=== PATIENT | female | born 1940 | race Caucasian/White ===

== ENCOUNTER 2018-10-05 15:57 | Inpatient (IN) | payer MEDICARE ==
[~2018-10-05] VITALS: Ht 160 cm; Wt 62.3 kg
--- NOTE | ~2018-10-05 | MORECARE ---
CASE MANAGEMENT DISCHARGE SUMMARY PATIENT: MERYL SPARKS UNIT: [id number] ADM DATE: 10/05/18 AGE: 78 : 38 SEX: F ROOM/BED: D.1811 AUTHOR: MEHREEN SINGH PHYSICIAN: REFERRING PHYSICIAN: KARINA JUÁREZ MD DATE OF SERVICE: 10/18/18 Discharge Plan Patient Name: MERYL SPARKS Facility: [facility]:[place] : 1940 Planned Disposition: Home with Hospice Anticipated Discharge Date: 10/19/18 Discharge Date: Expected LOS: 14 Initial Reviewer: [email or web address] Initial Review Date: 10/05/2018 Generated: 10/18/18 5:36 pm Comments DCP- Discharge Planning Updated by [email or web address]: Pascual Maxwell on 10/18/18 3:[address] Patient Name: MERYL SPARKS Encounter No: [id number] : 1940 Primary Insurance: MEDICARE A & B Anticipated DC Date: 10-19-2018 Planned Disposition: Home with Hospice External Planned Provider: [facility] DCP follow-up note: CM RECEIVED HOSPICE ORDER, MET WITH PT AND FAMILY IN ROOM. PT DID NOT AROUSE DURING CONSULT. PT'S DAUGHTER, AILYN DE LA O, REPORTS THEY HAVE DISCUSSED HOSPICE WITH PT, ALL ARE IN AGREEMENT WITH HOSPICE LONG PT WILL HAVE PAIN CONTROL. THEY WANT TO TAKE PT TO HER HOME FOR HOSPICE AT PT'S REQUEST. DAUGHTER REPORTS UNDERSTANDING OF HOSPICE CARE AND UNDERSTANDS THE FAMILY WILL NEED TO PROVIDE 24 HOUR CARE FOR PT AT HOME. HOSPICE PROVIDERS AND LOCATIONS DISCUSSED. DAUGHTER REQUESTED [facility] THEY USED [facility] FOR ANOTHER FAMILY MEMBER IN THE PAST AND RECEIVED VERY GOOD CARE. CM PROVIDED AND DISCUSSED IMPORTANT MESSAGE FROM MEDICARE. CM CALLED [facility], , SPOKE TO ANDI AND PROVIDED REFERRAL INFORMATION. ANDI WILL HAVE HOSPICE NURSE TO EVALUATE PT TONIGHT AND SPEAK TO PT'S DAUGHTER; [place] [facility] WILL COORDINATE DELIVERY OF MEDICAL EQUIPMENT AND REFERRAL FOR SERVICES WITH THE [place] [facility]. CM FAXED REFERRAL TO [facility] AT [phone]. CM WAITING HOSPICE EVALUATION AND ARRANGEMENT OF HOME EQUIPMENT TO BE COMPLETED BY [facility] FOR PT TO BE DISCHARGED HOME VIA AMBULANCE. Pascual Maxwell, CASE MANAGEMENT DCP- Discharge Planning Updated by [id number]: Drea Claros on 10/17/18 8:[address] DAY CM MANAGE LEFT NOTE REGARDING LATE PM REQUEST FOR DISCHARGE PLANNING. WEEKEND CM UNABLE TO SEE PATIENT OR FAMILY THURSDAY DUE TO VOLUME OF DISCHARGES FOR SINGLE CM. CM TO UNIT THIS AM AND PATIENT WAS BEING TRANSFERED TO ICU POST RAPID RESPONSE. DISCUSSION IN ICU REGARDING CODE STATUS DUE TO VARYING DEGREES OF STABILITY. DO NOT INTUBATE/ NO COMPRESSIONS/ NO MEDS. PATIENT TRANSFERED BACK TO MED 2 THIS PM. PATIENT WITH 2 ADDITIONAL EPISODES OF INSTABILITY AND DIFFICULTY BREATHING. CM WILL F/U IN THE AM FOR TRANSFERE TO SKILLED FACILITY. [facility] FACILITIES IN [facility]. QUESTION WOULD HOSPICE CONSULT BE APPROPRAITE. DCP- Discharge Planning Updated by [email or web address]: Pascual Maxwell on 10/08/18 3:[address] Patient Name: MERYL SPARKS Admission Status: Urgent Accout number: [id number] Admission Date: 10-05-2018 : 1940 Admission Diagnosis:OTH COMPLICATION OF VASCULAR PROSTH DEV/GARY, INIT Attending: KARINA JUÁREZ Current LOS: 3 Anticipated DC Date: Planned Disposition: Home with Home Health Primary Insurance: MEDICARE A & B PLANNED EXTERNAL PROVIDER: [facility] Discharge Planning Comments: CM RECEIVED MESSAGE THAT PT'S FAMILY WANTED INFORMATION ON LOCAL [employer]. CM MET WITH PT AND SON IN ROOM TO DISCUSS DISCHARGE PLANNING AND NEEDS. MERYL SPARKS provided verbal consent to discuss current and ongoing needs with/in the presence of: SONADELINA. PT REPORTS LIVING AT HOME DEPENDENTLY ON ADULT SON. PT'S DAUGHTER ASSISTS WITH MEDICATION MANAGEMENT AND HOME HEALTH AIDE HAS BEEN ASSISTING WITH BATHING. PT IS IN DEPENDENT OTHERWISE IN THE HOME. PT HAS HOME AND PORTABLE OXYGEN WELL WALKER AND STANDARD WHEELCHAIR FROM [employer]. PT HAS HOME HEALTH WITH [facility] FOR NURSING AND PHYSICAL THERAPY SERVICES. CM DISCUSSED AVAILABILITY OF HOME HEALTH, REHAB SERVICES AND MEDICAL EQUIPMENT. PT DENIES DISCHARGE NEEDS OTHER THAN HER HOME HEALTH, REPORTS PLAN TO RETURN HOME WITH SON, FAMILY WILL PICK PT UP FOR DISCHARGE HOME. IMPORTANT MESSAGE FROM MEDICARE PROVIDED AND EXPLAINED. CM PROVIDED LOCAL HOTEL INFORMATON ALONG WITH DISCOUNT CARD TO [facility]. CM CALLED [facility], , SPOKE TO ADDY WHO VERIFIED PT ACTIVE AND ON HOLD FOR HOME HEALTH NURSING AND PHYSICAL THERAPY. CM FAXED HOSPITAL UPDATE TO [facility] AT [phone]. FOR DISCHARGE HOME WITH HOME HEALTH, NOTIFY [facility] AT [phone], FAX DISCHARGE INFORMATION TO [facility] AT [phone]. Day Care Teacher: Pascual Maxwell DCPIA - Discharge Planning Initial Assessment Updated by [id number]: Pascual Maxwell on 10/08/18 4:35 pm * Is the patient Alert and Oriented? Yes * How many steps to enter\exit or inside your home? RAMP * PCP DR. MAGAÑA, [place] * Pharmacy [facility] IN [place] * Preadmission Environment Home with Family * ADLs Partial Dependent * Partial ADLs (Assistance needed) Bathing Medication Management * Equipment Oxygen Walker Wheelchair * Other Equipment HOME AND PORTABLE OXYGEN [employer] - MEDICAL EQUIPMENT PROVIDER * List name and contact numbers for known caregivers / representatives who currently or will assist patient after discharge: ADELINA TURNER, SON, AILYN DE LA O, DTR, * Verbal permission to speak to the caregivers and representatives has been obtained from the patient. Yes * Community resources currently utilized Home Health Other * Please name any agencies selected above. [facility], MWF, 1115 AM, MEDICAID TRANSPORTATIN * Additional services required to return to the preadmission environment? No * Can the patient safely return to the preadmission environment? Yes * Has this patient been hospitalized within the prior 30 days at any hospital? Yes Coverage Notice Reviewer: [email or web address] Rachel Maxwell Notice Issued Date-Time: 10/08/2018 14:35 Notice Type: IM Discharge Notice Notice Delivered To: Family Member Relationship to Patient: Son Beef Killer Name: ADELINA TURNER Delivery Method: HAND - Hand Delivered Margarita Days: Prior Verbal Notification: Recipient Understood Notice: Yes Recipient Signature: Yes Med Rec Note Co-signed by Attending: Coverage Notice Comment: Reviewer: [email or web address] Maxwell Notice Issued Date-Time: 10/18/2018 15:55 Notice Type: IM Discharge Notice Notice Delivered To: Patient Relationship to Patient: Beef Killer Name: Delivery Method: HAND - Hand Delivered Margarita Days: Prior Verbal Notification: Recipient Understood Notice: Yes Recipient Signature: Yes Med Rec Note Co-signed by Attending: Coverage Notice Comment: Last DP export: 10/18/18 3:19 Patient Name: MERYL SPARKS Page [id number] at 1636 All edits/amendments must be made on the electronic document DICTATION DATE: 10/18/18 163 SKI MAKER: VINCENZO 10/18/18 1636 RPT#: [id number] DC DATE: STATUS: ADM IN [facility] [address] [place] [address] END OF REPORT
--- NOTE | ~2018-10-05 | OP ---
PATIENT NAME: MERYL SPARKS MEDICAL RECORD: [id number] :[birth year] LOCATION:D.M2 D.2113 ADMISSION DATE:10/05/18 SURGEON: MALINDA GORDON MD DATE OF OPERATION: 10/06/2018 SURGEON: Malinda Gordon MD PREOPERATIVE DIAGNOSES: 1. 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 2. End-stage renal disease, on hemodialysis. POSTOPERATIVE DIAGNOSES: 1. 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 2. End-stage renal disease, on hemodialysis. PROCEDURES PERFORMED: 1. Ligation of left upper extremity brachiocephalic fistula. 2. Ultrasound-guided left internal jugular trialysis catheter placement. 3. Right chest tube thoracostomy placement. ANESTHESIA: General. COMPLICATIONS: None. SPECIMENS: None. Case was clean. ESTIMATED BLOOD LOSS: 450 cc. OPERATIVE COURSE: After consent was obtained, the patient was taken to the operating room and placed in the supine position on the operating table. Next, general anesthesia was given via endotracheal intubation after a timeout was performed to confirm correct patient and procedure. The left and right chest and neck were prepped in typical sterile fashion. The left upper extremity was prepped and draped in typical sterile fashion on the arm board. A right internal jugular vein was identified on ultrasound guidance. It was cannulated, a wire would not pass. At this time, a 0.035 Glidewire was attempted to pass without success. Again, attempted cannulation of the left IJ was attempted with a micropuncture needle with ultrasound guidance. Again, blood was aspirated from the IJ. A wire was unable to be passed. At this time, we decided access the right subclavian vein, the guidewire was placed. The dilator and sheath were not able to make the curve at the right subclavian into the superior vena cava. At this time, a right subclavian approach was abandoned. It was noted on fluoroscopy that there was either a large pleural effusion or pneumothorax noted on the right side. The patient had increase in tidal volumes. At this time, a right-sided chest tube was placed and the right chest was prepped and draped. An incision was made just in the anterior axillary line with the #10-blade scalpel. Dissection was continued to the subcutaneous tissue. The chest cavity was entered over the 4th rib with a blunt Pamela. Immediately returned was 1500 cc of serous fluid. A 24-Honduran chest tube was placed into the chest cavity into the apex of the lung, it was secured to the OPERATIVE REPORT [id number] MERYL SPARKS skin at 16 cm, connected to a Pleur-Evac with another additional drainage of 300 cc of serous fluid. It was secured to the skin using 0 silk suture and Adaptic gauze. At this time, the left internal jugular vein was identified with the ultrasound. Under direct ultrasound guidance, the vein was accessed with blood aspirated. The needle and wire were placed under fluoroscopy to the atriocaval junction. A skin incision was made with #11-blade scalpel. The dilators were passed over the wire in a standard Seldinger fashion and under fluoroscopy, a Trialysis catheter was then passed over the wire and advanced to the atriocaval junction. The wire was removed. All 3 ports were aspirated and flushed, secured to the skin using 2-0 nylon suture and sterile dressings. At this time, the local anesthetic was injected in the left antecubital fossa over the fistula. Skin incision made with #10 blade scalpel, dissection continued using sharp scissor dissection as well as electrocautery to isolate the cephalic vein at its anastomosis with the brachial artery. The proximal and distal radial arteries were dissected. Vessel loops were placed as well. An additional vessel loop was placed around the cephalic vein. At this time, the cephalic vein was ligated using 0 Vicryl sutures. With the ultrasound probe, there were triphasic signals in the brachial artery and there were also triphasic signals in the radial artery at the patient's left wrist. At this time, the wound was irrigated. It was closed in 2 layers. The subcutaneous tissue was closed with 3-0 Vicryl. The skin was closed with 4-0 Monocryl, Mastisol, and Steri-Strips. At the end of the case, all needle and instrument counts were correct. No complications occurred. The patient was extubated and transferred to the PACU in stable condition. TRANSINT:[id number] Voice Confirmation ID: [id number] DOCUMENT ID: [id number] MALINDA GORDON MD at 1336 CC: [id number] DICTATION DATE: 10/06/182036 SCRIPT WRITER: 10/06/182300 ADM IN [place] [address] [place] [address]
--- NOTE | ~2018-10-05 | MORECARE ---
CASE MANAGEMENT DISCHARGE SUMMARY PATIENT: MERYL SPARKS UNIT: [id number] ADM DATE: 10/05/18 AGE: 78 : 38 SEX: F ROOM/BED: D.[facility] AUTHOR: MEHREEN SINGH PHYSICIAN: REFERRING PHYSICIAN: KARINA JUÁREZ MD DATE OF SERVICE: 10/08/18 Discharge Plan Patient Name: MERYL SPARKS Facility: [facility]:[place] : 1940 Planned Disposition: Home Anticipated Discharge Date: Discharge Date: Expected LOS: Initial Reviewer: [id number] Initial Review Date: 10/05/2018 Generated: 10/08/18 5:32 pm Coverage Notice Reviewer: [id number] - Pascual Maxwell Notice Issued Date-Time: 10/08/2018 14:35 Notice Type: IM Discharge Notice Notice Delivered To: Family Member Relationship to Patient: Son Die Storage Clerk Name: ADELINA TURNER Delivery Method: HAND - Hand Delivered Margarita Days: Prior Verbal Notification: Recipient Understood Notice: Yes Recipient Signature: Yes Med Rec Note Co-signed by Attending: Coverage Notice Comment: Patient Name: MERYL SPARKS Page 35717 at 1632 All edits/amendments must be made on the electronic document DICTATION DATE: 10/08/18 163 ATMOSPHERIC DRIER TENDER: VINCENZO 10/08/18 1632 RPT#: [id number] DC DATE: STATUS: ADM IN [facility] [address] [place] [address] END OF REPORT
--- NOTE | ~2018-10-05 | OP ---
PATIENT NAME: MERYL SPARKS MEDICAL RECORD: [id number] :36 LOCATION:D.M2 D.2113 ADMISSION DATE:10/05/18 SURGEON: JACINTO GRIDER MD DATE OF OPERATION: 10/13/2018 PREOPERATIVE DIAGNOSIS: End-stage renal disease without chronic access for hemodialysis. POSTOPERATIVE DIAGNOSIS: End-stage renal disease without chronic access for hemodialysis. PROCEDURES: 1. Left IJ 23 cm HemoSplit catheter placement under fluoroscopy. 2. Immediate surgeon interpretation of the fluoroscopic images. SURGEON: Jacinto Grider MD NANOSYSTEMS ENGINEER: None. BLOOD LOSS: Minimal. ANESTHESIA: Straight local. COMPLICATIONS: None. The patient currently has a left-sided Trialysis catheter in place. She has had to have an arteriovenous fistula ligated due to steal syndrome. OPERATIVE COURSE: The patient was conveyed to the operating room electively on 10/13/2018. The left neck and left chest were sterilely prepped and draped. A local anesthetic was used to infiltrate the skin and subcutaneous tissues at the base of left neck as well as in the left anterior infraclavicular chest. Through the existing Trialysis catheter, I advanced a guidewire. No radiologist was present for this procedure. Static fluoroscopic images were obtained and are kept in the PACS system. The surgeon interpretation of radiographic images is dictated within the body of this operative note. Under fluoroscopy, I advanced the guidewire. A counter incision was accomplished in the left infraclavicular anterior chest in the midclavicular line. An incision was accomplished around the Trialysis catheter as well. I then tunneled a 23 cm HemoSplit catheter, which is a dual lumen cuffed hemodialysis catheter from the chest incision to the neck incision. Over the guidewire, I placed a dilator sheath. The dilator and wire were removed. Through the sheath, I advanced the tips of the HemoSplit catheter. I then peeled away the sheath. I then pulled back on the HemoSplit catheter in order to seat the cuff into the subcutaneous tissues. Under fluoroscopy, the longest HemoSplit catheter tip appeared to be at the cavoatrial junction. There was no radiographic evidence of complication. There was no apparent kinking or twisting of the HemoSplit catheter. The neck incision was closed with a single intracuticular 3-0 Vicryl suture. The flange of the HemoSplit catheter was sutured to the underlying skin with 2-0 nylons. Both lumens flushed easily and aspirated dark, nonpulsatile blood. OPERATIVE REPORT [id number] MERYL SPARKS I then topped off both lumens of the HemoSplit catheter with concentrated heparin. Sterile dressings were applied. The patient was then conveyed back to her room. TRANSINT:[id number] Voice Confirmation ID: [id number] DOCUMENT ID: [id number] JACINTO GRIDER MD at 1204 CC: [id number] DICTATION DATE: 10/13/18 2100 INFORMATION SYSTEMS MANAGER: 10/14/18 0334 ADM IN [facility] [address] [place] [address]
--- NOTE | ~2018-10-05 | MORECARE ---
CASE MANAGEMENT DISCHARGE SUMMARY PATIENT: MERYL SPARKS UNIT: [id number] ADM DATE: 10/05/18 AGE: 78 : 38 SEX: F ROOM/BED: D.4163 AUTHOR: FRANCISCO,MEHREEN PHYSICIAN: REFERRING PHYSICIAN: KARINA JUÁREZ MD DATE OF SERVICE: 10/08/18 Discharge Plan Patient Name: MERYL SPARKS Facility: [facility]:[place] : 1940 Planned Disposition: Home with Home Health Anticipated Discharge Date: Discharge Date: Expected LOS: Initial Reviewer: [email or web address] Initial Review Date: 10/05/2018 Generated: 10/08/18 5:56 pm Comments DCP- Discharge Planning Updated by [id number]: Pascual Maxwell on 10/08/18 3:[address] Patient Name: MERYL SPARKS Admission Status: Urgent Accout number: [id number] Admission Date: 10-05-2018 : 1940 Admission Diagnosis:OTH COMPLICATION OF VASCULAR PROSTH DEV/GRFT, INIT Attending: KARINA JUÁREZ Current LOS: 3 Anticipated DC Date: Planned Disposition: Home with Home Health Primary Insurance: MEDICARE A & B PLANNED EXTERNAL PROVIDER: [facility] Discharge Planning Comments: CM RECEIVED MESSAGE THAT PT'S FAMILY WANTED INFORMATION ON LOCAL HOTELS. CM MET WITH PT AND SON IN ROOM TO DISCUSS DISCHARGE PLANNING AND NEEDS. MERYL SPARKS provided verbal consent to discuss current and ongoing needs with/in the presence of: SON, ADELINA TURNER. PT REPORTS LIVING AT HOME DEPENDENTLY ON ADULT SON. PT'S DAUGHTER ASSISTS WITH MEDICATION MANAGEMENT AND HOME HEALTH AIDE HAS BEEN ASSISTING WITH BATHING. PT IS IN DEPENDENT OTHERWISE IN THE HOME. PT HAS HOME AND PORTABLE OXYGEN WELL WALKER AND STANDARD WHEELCHAIR FROM [facility]. PT HAS HOME HEALTH WITH [facility] FOR NURSING AND PHYSICAL THERAPY SERVICES. CM DISCUSSED AVAILABILITY OF HOME HEALTH, REHAB SERVICES AND MEDICAL EQUIPMENT. PT DENIES DISCHARGE NEEDS OTHER THAN HER HOME HEALTH, REPORTS PLAN TO RETURN HOME WITH SON, FAMILY WILL PICK PT UP FOR DISCHARGE HOME. IMPORTANT MESSAGE FROM MEDICARE PROVIDED AND EXPLAINED. CM PROVIDED LOCAL HOTEL [employer] ALONG WITH DISCOUNT CARD TO [facility]. CM CALLED [facility], , SPOKE TO ADDY WHO VERIFIED PT ACTIVE AND ON HOLD FOR HOME HEALTH NURSING AND PHYSICAL THERAPY. CM FAXED HOSPITAL UPDATE TO [facility] AT [phone]. FOR DISCHARGE HOME WITH HOME HEALTH, NOTIFY [facility] AT [phone], FAX DISCHARGE INFORMATION TO [facility] AT [phone]. Cold Type Artist: Pascual Maxwell DCPIA - Discharge Planning Initial Assessment Updated by [id number]: Pascual Maxwell on 10/08/18 4:35 pm * Is the patient Alert and Oriented? Yes * How many steps to enter\exit or inside your home? RAMP * PCP DR. MAGAÑA, [place] * Pharmacy [facility] IN [place] * Preadmission Environment Home with Family * ADLs Partial Dependent * Partial ADLs (Assistance needed) Bathing Medication Management * Equipment Oxygen Walker Wheelchair * Other Equipment HOME AND PORTABLE OXYGEN [employer] - MEDICAL EQUIPMENT PROVIDER * List name and contact numbers for known caregivers / representatives who currently or will assist patient after discharge: ADELINA TURNER, SON, AILYN DE LA O DTR, * Verbal permission to speak to the caregivers and representatives has been obtained from the patient. Yes * Community resources currently utilized [facility] Other * Please name any agencies selected above. [facility], MWF, 1115 AM, MEDICAID TRANSPORTATIN * Additional services required to return to the preadmission environment? No * Can the patient safely return to the preadmission environment? Yes * Has this patient been hospitalized within the prior 30 days at any hospital? Yes External Providers External Provider: [facility] Next Contact Date: 10/09/2018 Service Request Date: Service Type: Resolution: Reviewer: Comments: Coverage Notice Reviewer: [id number] - Pascual Maxwell Notice Issued Date-Time: 10/08/2018 14:35 Notice Type: IM Discharge Notice Notice Delivered To: Family Member Relationship to Patient: Son Laboratory Administrative Director Name: ADELINA TURNER Delivery Method: HAND - Hand Delivered Margarita Days: Prior Verbal Notification: Recipient Understood Notice: Yes Recipient Signature: Yes Med Rec Note Co-signed by Attending: Coverage Notice Comment: Last DP export: 10/08/18 3:42 p Patient Name: MERYL SPARKS Page 59967 at 1657 All edits/amendments must be made on the electronic document DICTATION DATE: 10/08/181655 HEAD PORTER BAGGAGE: [place]INCENZO 10/08/181655 RPT#: [id number] DC DATE: STATUS: ADM IN [facility] [address] [place] [address] END OF REPORT
--- NOTE | ~2018-10-05 | MORECARE ---
CASE MANAGEMENT DISCHARGE SUMMARY PATIENT: MERYL SPARKS UNIT: [id number] ADM DATE: 10/05/18 AGE: 78 : 38 SEX: F ROOM/BED: D.2113 AUTHOR: MEHREEN SINGH PHYSICIAN: REFERRING PHYSICIAN: KARINA JUÁREZ MD DATE OF SERVICE: 10/19/18 Discharge Plan Patient Name: MERYL SPARKS Facility: [facility]:[place] : 1940 Planned Disposition: Home with Hospice Anticipated Discharge Date: 10/19/18 Discharge Date: Expected LOS: 14 Initial Reviewer: [id number] Initial Review Date: 10/05/2018 Generated: 10/19/18 12:52 pm Comments DCP- Discharge Planning Updated by [id number]: Pascual Maxwell on 10/19/18 10:[address] Patient Name: MERYL SPARKS Encounter No: [id number] : 1940 Primary Insurance: MEDICARE A & B Anticipated DC Date: 10-19-2018 Planned Disposition: Home with Hospice External Planned Provider: [facility] DCP follow-up note: CM RECEIVED NOTE FROM NATANAEL JUÁREZ, NURSE FOR [facility] INDCIATING PT HAS BEEN APPROVED FOR HOME HOSPICE AND THEY WILL ADMIT TO HOSPICE UPON PT'S ARRIVAL AT HOME. CM SPOKE TO PT'S DAUGHTER, AILYN DE LA O, WHO REPORTS ALL ARRANGEMENTS ARE COMPLETED, ALL EQUIPMENT AT HOME, THEY ARE IN AGREEMENT WITH DISCHARGE HOME TODAY WITH [facility]. CM NOTIFIED DR. BOND. CM RECEIVED DISCHARGE ORDERS, CM FAXED DISCHARGE INFORMATION TO [facility] AT [phone]. NOTIFY [facility] WHEN PT LEAVES BY AMBULANCE AT [phone]. PT TO BE DISCHARGED HOME VIA AMBULANCE. EVA Barnett DCP- Discharge Planning Updated by [id number]: Pascual Maxwell on 10/18/18 3:[address] Patient Name: MERYL SPARKS Encounter No: [id number] : 1940 Primary Insurance: MEDICARE A & B Anticipated DC Date: 10-19-2018 Planned Disposition: Home with Hospice External Planned Provider: [facility] DCP follow-up note: CM RECEIVED HOSPICE ORDER, MET WITH PT AND FAMILY IN ROOM. PT DID NOT AROUSE DURING CONSULT. PT'S DAUGHTER, AILYN DE LA O, REPORTS THEY HAVE DISCUSSED HOSPICE WITH PT, ALL ARE IN AGREEMENT WITH HOSPICE LONG PT WILL HAVE PAIN CONTROL. THEY WANT TO TAKE PT TO HER HOME FOR HOSPICE AT PT'S REQUEST. DAUGHTER REPORTS UNDERSTANDING OF HOSPICE CARE AND UNDERSTANDS THE FAMILY WILL NEED TO PROVIDE 24 HOUR CARE FOR PT AT HOME. HOSPICE PROVIDERS AND LOCATIONS DISCUSSED. DAUGHTER REQUESTED [facility] THEY USED [facility] FOR ANOTHER FAMILY MEMBER IN THE PAST AND RECEIVED VERY GOOD CARE. CM PROVIDED AND DISCUSSED IMPORTANT MESSAGE FROM MEDICARE. CM CALLED [facility], , SPOKE TO ANDI AND PROVIDED REFERRAL INFORMATION. ANDI WILL HAVE HOSPICE NURSE TO EVALUATE PT TONIGHT AND SPEAK TO PT'S DAUGHTER; [place] OFFICE OF [facility] WILL COORDINATE DELIVERY OF MEDICAL EQUIPMENT AND REFERRAL FOR SERVICES WITH THE [place] OFFICE OF [facility]. CM FAXED REFERRAL TO [facility] AT [phone]. CM WAITING HOSPICE EVALUATION AND ARRANGEMENT OF HOME EQUIPMENT TO BE COMPLETED BY [facility] FOR PT TO BE DISCHARGED HOME VIA AMBULANCE. Pascual Maxwell, CASE MANAGEMENT DCP- Discharge Planning Updated by [id number]: Drea Claros on 10/17/18 8:[address] WEEKDAY CM MANAGE LEFT NOTE REGARDING LATE PM REQUEST FOR DISCHARGE PLANNING. WEEKEND CM UNABLE TO SEE PATIENT OR FAMILY THURSDAY DUE TO VOLUME OF DISCHARGES FOR SINGLE CM. CM TO UNIT THIS AM AND PATIENT WAS BEING TRANSFERED TO ICU POST RAPID RESPONSE. DISCUSSION IN ICU REGARDING CODE STATUS DUE TO VARYING DEGREES OF STABILITY. DO NOT INTUBATE/ NO COMPRESSIONS/ NO MEDS. PATIENT TRANSFERED BACK TO MED 2 THIS PM. PATIENT WITH 2 ADDITIONAL EPISODES OF INSTABILITY AND DIFFICULTY BREATHING. CM WILL F/U IN THE AM FOR TRANSFERE TO SKILLED FACILITY. [facility] FACILITIES IN [facility]. QUESTION WOULD HOSPICE CONSULT BE APPROPRAITE. 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 CM MET WITH PT AND SON IN ROOM TO DISCUSS DISCHARGE PLANNING AND NEEDS. MERYL SPARKS provided verbal consent to discuss current and ongoing needs with/in the presence of: SON, ADELINA TURNRE. PT REPORTS LIVING AT HOME DEPENDENTLY ON ADULT SON. PT'S DAUGHTER ASSISTS WITH MEDICATION MANAGEMENT AND HOME HEALTH AIDE HAS BEEN ASSISTING WITH BATHING. PT IS IN DEPENDENT OTHERWISE IN THE HOME. PT HAS HOME AND PORTABLE OXYGEN WELL WALKER AND STANDARD WHEELCHAIR FROM [facility]. PT HAS HOME HEALTH WITH [facility] FOR NURSING AND PHYSICAL THERAPY SERVICES. CM DISCUSSED AVAILABILITY OF HOME HEALTH, REHAB SERVICES AND MEDICAL EQUIPMENT. PT DENIES DISCHARGE NEEDS OTHER THAN HER HOME HEALTH, REPORTS PLAN TO RETURN HOME WITH SON, FAMILY WILL PICK PT UP FOR DISCHARGE HOME. IMPORTANT MESSAGE FROM MEDICARE PROVIDED AND EXPLAINED. CM PROVIDED LOCAL HOTEL INFORMATON ALONG WITH DISCOUNT CARD TO [facility] SUITES ON [facility]. CM CALLED [facility], , SPOKE TO ADDY WHO VERIFIED PT ACTIVE AND ON HOLD FOR HOME HEALTH NURSING AND PHYSICAL THERAPY. CM FAXED HOSPITAL UPDATE TO [facility] AT [phone]. FOR DISCHARGE HOME WITH [facility], NOTIFY [facility] AT [phone], FAX DISCHARGE INFORMATION TO [facility] AT [phone]. Maintenance Engineer: Pascual Maxwell DCPIA - Discharge Planning Initial Assessment Updated by [id number]: Pascual Maxwell on 10/08/18 4:35 pm * Is the patient Alert and Oriented? Yes * How many steps to enter\exit or inside your home? RAMP * PCP DR. MAGAÑA [place] * Pharmacy [facility] [place] * Preadmission Environment Home with Family * ADLs Partial Dependent * Partial ADLs (Assistance needed) Bathing Medication Management * Equipment Oxygen Walker Wheelchair * Other Equipment HOME AND PORTABLE OXYGEN [employer] - MEDICAL EQUIPMENT PROVIDER * List name and contact numbers for known caregivers / representatives who currently or will assist patient after discharge: ADELINA TURNER, SON, AILYN DE LA O DTR, * Verbal permission to speak to the caregivers and representatives has been obtained from the patient. Yes * Community resources currently utilized Home Health Other * Please name any agencies selected above. [facility], MWF, 1115 AM, MEDICAID TRANSPORTATIN * Additional services required to return to the preadmission environment? No * Can the patient safely return to the preadmission environment? Yes * Has this patient been hospitalized within the prior 30 days at any hospital? Yes Coverage Notice Reviewer: JETT Maxwell Notice Issued Date-Time: 10/08/2018 14:35 Notice Type: IM Discharge Notice Notice Delivered To: Family Member Relationship to Patient: Son Tube Sorter Name: ADELINA TURNER Delivery Method: HAND - Hand Delivered Margarita Days: Prior Verbal Notification: Recipient Understood Notice: Yes Recipient Signature: Yes Med Rec Note Co-signed by Attending: Coverage Notice Comment: Reviewer: JETT Maxwell Notice Issued Date-Time: 10/18/2018 15:55 Notice Type: IM Discharge Notice Notice Delivered To: Patient Relationship to Patient: Tube Sorter Name: Delivery Method: HAND - Hand Delivered Margarita Days: Prior Verbal Notification: Recipient Understood Notice: Yes Recipient Signature: Yes Med Rec Note Co-signed by Attending: Coverage Notice Comment: Last DP export: 10/18/18 4:24 Patient Name: MERYL SPARKS Page 54301 at 1152 All edits/amendments must be made on the electronic document DICTATION DATE: 10/19/18 1151 MERCHANDISER SEASONAL: VINCENZO 10/19/18 1151 RPT#: [id number] [place] DATE: STATUS: ADM IN [facility] [address] [place] [address] END OF REPORT
--- NOTE | ~2018-10-05 | MORECARE ---
CASE MANAGEMENT DISCHARGE SUMMARY PATIENT: MERYL SPARKS UNIT: [id number] ADM DATE: 10/05/18 AGE: 78 : 38 SEX: F ROOM/BED: D.0064 AUTHOR: MEHREEN SINGH PHYSICIAN: REFERRING PHYSICIAN: KARINA JUÁREZ MD DATE OF SERVICE: 10/18/18 Discharge Plan Patient Name: MERYL SPARKS Facility: [facility]:[place] : 1940 Planned Disposition: Home with Hospice Anticipated Discharge Date: 10/19/18 Discharge Date: Expected LOS: 14 Initial Reviewer: [id number] Initial Review Date: 10/05/2018 Generated: 10/18/18 6:24 pm Comments DCP- Discharge Planning Updated by [id number]: Pascual Maxwell on 10/18/18 3:[address] Patient Name: MERYL SPARKS Encounter No: [id number] : 1940 Primary Insurance: MEDICARE A & B Anticipated DC Date: 10-19-2018 Planned Disposition: Home with Hospice External Planned Provider: [facility] DCP follow-up note: CM RECEIVED HOSPICE ORDER, MET WITH PT AND FAMILY IN ROOM. PT DID NOT AROUSE DURING CONSULT. PT'S DAUGHTER, AILYN DE LA O, REPORTS THEY HAVE DISCUSSED HOSPICE WITH PT, ALL ARE IN AGREEMENT WITH HOSPICE LONG PT WILL HAVE PAIN CONTROL. THEY WANT TO TAKE PT TO HER HOME FOR HOSPICE AT PT'S REQUEST. DAUGHTER REPORTS UNDERSTANDING OF HOSPICE CARE AND UNDERSTANDS THE FAMILY WILL NEED TO PROVIDE 24 HOUR CARE FOR PT AT HOME. HOSPICE PROVIDERS AND LOCATIONS DISCUSSED. DAUGHTER REQUESTED [facility] THEY USED [place] FOR ANOTHER FAMILY MEMBER IN THE PAST AND RECEIVED VERY GOOD CARE. CM PROVIDED AND DISCUSSED IMPORTANT MESSAGE FROM MEDICARE. CM CALLED [facility], , SPOKE TO ANDI AND PROVIDED REFERRAL INFORMATION. ANDI WILL HAVE HOSPICE NURSE TO EVALUATE PT TONIGHT AND SPEAK TO PT'S DAUGHTER; [place] OFFICE OF [facility] WILL COORDINATE DELIVERY OF MEDICAL EQUIPMENT AND REFERRAL FOR SERVICES WITH THE [place] OFFICE OF [facility]. CM FAXED REFERRAL TO [facility] AT [phone]. CM WAITING HOSPICE EVALUATION AND ARRANGEMENT OF HOME EQUIPMENT TO BE COMPLETED BY [facility] FOR PT TO BE DISCHARGED HOME VIA AMBULANCE. Pascual Maxwell, CASE MANAGEMENT DCP- Discharge Planning Updated by [id number]: Drea Claros on 10/17/18 8:[address] DAY CM MANAGE LEFT NOTE REGARDING LATE PM REQUEST FOR DISCHARGE PLANNING. WEEKEND CM UNABLE TO SEE PATIENT OR FAMILY THURSDAY DUE TO VOLUME OF DISCHARGES FOR SINGLE CM. CM TO UNIT THIS AM AND PATIENT WAS BEING TRANSFERED TO ICU POST RAPID RESPONSE. DISCUSSION IN ICU REGARDING CODE STATUS DUE TO VARYING DEGREES OF STABILITY. DO NOT INTUBATE/ NO COMPRESSIONS/ NO MEDS. PATIENT TRANSFERED BACK TO MED 2 THIS PM. PATIENT WITH 2 ADDITIONAL EPISODES OF INSTABILITY AND DIFFICULTY BREATHING. CM WILL F/U IN THE AM FOR TRANSFERE TO SKILLED FACILITY. THREE FACILITIES IN [facility]. QUESTION WOULD HOSPICE CONSULT BE APPROPRAITE. DCP- Discharge Planning Updated by [id number]: Pascual Maxwell on 10/08/18 3:[address] Patient Name: MERYL SPARKS Admission Status: Urgent Accout number: [id number] Admission Date: 10-05-2018 : 1940 Admission Diagnosis:OTH COMPLICATION OF VASCULAR PROSTH DEV/GARY, INIT Attending: KARINA JUÁREZ Current LOS: 3 Anticipated DC Date: Planned Disposition: Home with Home Health Primary Insurance: MEDICARE A & B PLANNED EXTERNAL PROVIDER: [facility] Discharge Planning Comments: CM RECEIVED MESSAGE THAT PT'S FAMILY WANTED INFORMATION ON LOCAL H[employer]. CM MET WITH PT AND SON IN ROOM TO DISCUSS DISCHARGE PLANNING AND NEEDS. MERYL SPARKS provided verbal consent to discuss current and ongoing needs with/in the presence of: SONADELINA. PT REPORTS LIVING AT HOME DEPENDENTLY ON ADULT SON. PT'S DAUGHTER ASSISTS WITH MEDICATION MANAGEMENT AND HOME HEALTH AIDE HAS BEEN ASSISTING WITH BATHING. PT IS IN DEPENDENT OTHERWISE IN THE HOME. PT HAS HOME AND PORTABLE OXYGEN WELL WALKER AND STANDARD WHEELCHAIR FROM [employer]. PT HAS HOME HEALTH WITH [facility] FOR [facility] AND PHYSICAL THERAPY SERVICES. CM DISCUSSED AVAILABILITY OF HOME HEALTH, REHAB SERVICES AND MEDICAL EQUIPMENT. PT DENIES DISCHARGE NEEDS OTHER THAN HER HOME HEALTH, REPORTS PLAN TO RETURN HOME WITH SON, FAMILY WILL PICK PT UP FOR DISCHARGE HOME. IMPORTANT MESSAGE FROM MEDICARE PROVIDED AND EXPLAINED. CM PROVIDED LOCAL HOTEL INFORMATON ALONG WITH DISCOUNT CARD TO [facility] ON [facility]. CM CALLED [facility], , SPOKE TO ADDY WHO VERIFIED PT ACTIVE AND ON HOLD FOR HOME HEALTH NURSING AND PHYSICAL THERAPY. CM FAXED HOSPITAL UPDATE TO [facility] AT [phone]. FOR DISCHARGE HOME WITH HOME HEALTH, NOTIFY [facility] AT [phone], FAX DISCHARGE INFORMATION TO [facility] AT [phone]. Assistant Operator: Pascual Maxwell DCPIA - Discharge Planning Initial Assessment Updated by [id number]: Pascual Maxwell on 10/08/18 4:35 pm * Is the patient Alert and Oriented? Yes * How many steps to enter\exit or inside your home? RAMP * PCP DR. MAGAÑA, [place] * Pharmacy [facility] [place] * Preadmission Environment Home with Family * ADLs Partial Dependent * Partial ADLs (Assistance needed) Bathing Medication Management * Equipment Oxygen Walker Wheelchair * Other Equipment HOME AND PORTABLE OXYGEN [employer] - MEDICAL EQUIPMENT PROVIDER * List name and contact numbers for known caregivers / representatives who currently or will assist patient after discharge: ADELINA TURNER, SON, AILYN DE LA O, DTR, * Verbal permission to speak to the caregivers and representatives has been obtained from the patient. Yes * Community resources currently utilized Home Health Other * Please name any agencies selected above. [facility], MWF, 1115 AM, MEDICAID TRANSPORTATIN * Additional services required to return to the preadmission environment? No * Can the patient safely return to the preadmission environment? Yes * Has this patient been hospitalized within the prior 30 days at any hospital? Yes Coverage Notice Reviewer: [id number] Rachel Maxwell Notice Issued Date-Time: 10/08/2018 14:35 Notice Type: IM Discharge Notice Notice Delivered To: Family Member Relationship to Patient: Son Laborer Plumbing Name: ADELINA TURNER Delivery Method: HAND - Hand Delivered Margarita Days: Prior Verbal Notification: Recipient Understood Notice: Yes Recipient Signature: Yes Med Rec Note Co-signed by Attending: Coverage Notice Comment: Reviewer: [id number] Maxwell Notice Issued Date-Time: 10/18/2018 15:55 Notice Type: IM Discharge Notice Notice Delivered To: Patient Relationship to Patient: Laborer Plumbing Name: Delivery Method: HAND - Hand Delivered Margarita Days: Prior Verbal Notification: Recipient Understood Notice: Yes Recipient Signature: Yes Med Rec Note Co-signed by Attending: Coverage Notice Comment: Last DP export: 10/18/18 3:36 Patient Name: MERYL SPARKS Page 74506 at 1724 All edits/amendments must be made on the electronic document DICTATION DATE: 10/18/181722 CIGARETTE MAKING EXAMINER: VINCENZO 10/18/181722 RPT#: [id number] DC DATE: STATUS: ADM IN [facility] [address] [place] [address] END OF REPORT
--- NOTE | ~2018-10-05 | MORECARE ---
CASE MANAGEMENT DISCHARGE SUMMARY PATIENT: MERYL SPARKS UNIT: [id number] ADM DATE: 10/05/18 AGE: 78 : 38 SEX: F ROOM/BED: D.[facility]3 AUTHOR: FRANCISCO,DOC PHYSICIAN: REFERRING PHYSICIAN: KARINA JUÁREZ MD DATE OF SERVICE: 10/08/18 Discharge Plan Patient Name: MERYL SPARKS Facility: [facility]:[place] : 1940 Planned Disposition: Home with Home Health Anticipated Discharge Date: Discharge Date: Expected LOS: Initial Reviewer: [email or web address] Initial Review Date: 10/05/2018 Generated: 10/08/18 5:42 pm DCPIA - Discharge Planning Initial Assessment Updated by JETT: Pascual Maxwell on 10/08/18 4:35 pm * Is the patient Alert and Oriented? Yes * How many steps to enter\exit or inside your home? RAMP * PCP DR. MAGAÑA [place] * Pharmacy [facility] IN [place] * Preadmission Environment Home with Family * ADLs Partial Dependent * Partial ADLs (Assistance needed) Bathing Medication Management * Equipment Oxygen Walker Wheelchair * Other Equipment HOME AND PORTABLE OXYGEN [employer] - MEDICAL EQUIPMENT PROVIDER * List name and contact numbers for known caregivers / representatives who currently or will assist patient after discharge: ADELINA TURNER, SON, AILYN DE LA O, DTR, * Verbal permission to speak to the caregivers and representatives has been obtained from the patient. Yes * Community resources currently utilized Home Health Other * Please name any agencies selected above. [facility], MWF, 1115 AM, MEDICAID TRANSPORTATIN * Additional services required to return to the preadmission environment? No * Can the patient safely return to the preadmission environment? Yes * Has this patient been hospitalized within the prior 30 days at any hospital? Yes Coverage Notice Reviewer: [id number] Rachel Maxwell Notice Issued Date-Time: 10/08/2018 14:35 Notice Type: IM Discharge Notice Notice Delivered To: Family Member Relationship to Patient: Son Cake Inspector Name: ADELINA TURNER Delivery Method: HAND - Hand Delivered Margarita Days: Prior Verbal Notification: Recipient Understood Notice: Yes Recipient Signature: Yes Med Rec Note Co-signed by Attending: Coverage Notice Comment: Last DP export: 10/08/18 3:32 p Patient Name: MERYL SPARKS Page [id number] at 1642 All edits/amendments must be made on the electronic document DICTATION DATE: 10/08/181640 WEAPONS AND TACTICS INSTRUCTOR: VINCENZO 10/08/181640 RPT#: [id number] DC DATE: STATUS: ADM IN [facility] [address] [place] [address] END OF REPORT
--- NOTE | ~2018-10-05 | MORECARE ---
CASE MANAGEMENT DISCHARGE SUMMARY PATIENT: MERYL SPARKS UNIT: [id number] ADM DATE: 10/05/18 AGE: 78 : 38 SEX: F ROOM/BED: D.[facility]3 AUTHOR: MEHREEN SINGH PHYSICIAN: REFERRING PHYSICIAN: KARINA JUÁREZ MD DATE OF SERVICE: 10/18/18 Discharge Plan Patient Name: MERYL SPARKS Facility: [facility]:[place] : 1940 Planned Disposition: Nursing Facility GAIL Cert Anticipated Discharge Date: Discharge Date: Expected LOS: Initial Reviewer: [id number] Initial Review Date: 10/05/2018 Generated: 10/18/18 12:18 pm Comments DCP- Discharge Planning Updated by [id number]: Drea Claros on 10/17/18 8:[address] DAY CM MANAGE LEFT NOTE REGARDING LATE PM REQUEST FOR DISCHARGE PLANNING. WEEKEND CM UNABLE TO SEE PATIENT OR FAMILY THURSDAY DUE TO VOLUME OF DISCHARGES FOR SINGLE CM. CM TO UNIT THIS AM AND PATIENT WAS BEING TRANSFERED TO ICU POST RAPID RESPONSE. DISCUSSION IN ICU REGARDING CODE STATUS DUE TO VARYING DEGREES OF STABILITY. DO NOT INTUBATE/ NO COMPRESSIONS/ NO MEDS. PATIENT TRANSFERED BACK TO MED 2 THIS PM. PATIENT WITH 2 ADDITIONAL EPISODES OF INSTABILITY AND DIFFICULTY BREATHING. CM WILL F/U IN THE AM FOR TRANSFERE TO SKILLED FACILITY. [facility] FACILITIES IN [facility]. QUESTION WOULD HOSPICE CONSULT BE APPROPRAITE. DCP- Discharge Planning Updated by [id number]: Pascual Maxwell on 10/08/18 3:[address] Patient Name: MERYL SPARKS Admission Status: Urgent Accout number: [id number] Admission Date: 10-05-2018 : 1940 Admission Diagnosis:OTH COMPLICATION OF VASCULAR PROSTH DEV/GRFT, INIT Attending: KARINA JUÁREZ Current LOS: 3 Anticipated DC Date: Planned Disposition: Home with Home Health Primary Insurance: MEDICARE A & B PLANNED EXTERNAL PROVIDER: [facility] OFF[facility] Discharge Planning Comments: CM RECEIVED MESSAGE THAT PT'S FAMILY WANTED INFORMATION ON LOCAL HOTELS. CM MET WITH PT AND SON IN ROOM TO DISCUSS DISCHARGE PLANNING AND NEEDS. MERYL SPARKS provided verbal consent to discuss current and ongoing needs with/in the presence of: SONADELINA. PT REPORTS LIVING AT HOME DEPENDENTLY ON ADULT SON. PT'S DAUGHTER ASSISTS WITH MEDICATION MANAGEMENT AND HOME HEALTH AIDE HAS BEEN ASSISTING WITH BATHING. PT IS IN DEPENDENT OTHERWISE IN THE HOME. PT HAS HOME AND PORTABLE OXYGEN WELL WALKER AND STANDARD WHEELCHAIR FROM [facility]. PT HAS HOME HEALTH WITH [facility] AND PHYSICAL THERAPY SERVICES. CM DISCUSSED AVAILABILITY OF HOME HEALTH, REHAB SERVICES AND MEDICAL EQUIPMENT. PT DENIES DISCHARGE NEEDS OTHER THAN HER HOME HEALTH, REPORTS PLAN TO RETURN HOME WITH SON, FAMILY WILL PICK PT UP FOR DISCHARGE HOME. IMPORTANT MESSAGE FROM MEDICARE PROVIDED AND EXPLAINED. PROVIDED LOCAL HOTEL INFORMATON ALONG WITH DISCOUNT CARD TO [facility] ON [facility]. CM CALLED [facility], , SPOKE TO ADDY WHO VERIFIED PT ACTIVE AND ON HOLD FOR HOME HEALTH NURSING AND PHYSICAL THERAPY. CM FAXED HOSPITAL UPDATE TO [facility] AT [phone]. FOR DISCHARGE HOME WITH HOME HEALTH, NOTIFY [facility] AT [phone], FAX DISCHARGE INFORMATION TO [facility] AT [phone]. [place] Registered Nurse Rn: Pascual Maxwell DCPIA - Discharge Planning Initial Assessment Updated by [id number]: Pascual Maxwell on 10/08/18 4:35 pm * Is the patient Alert and Oriented? Yes * How many steps to enter\exit or inside your home? RAMP * PCP DR. MAGAÑA, [place] * Pharmacy [facility] [place] * Preadmission Environment Home with Family * ADLs Partial Dependent * Partial ADLs (Assistance needed) Bathing Medication Management * Equipment Oxygen Walker Wheelchair * Other Equipment HOME AND PORTABLE OXYGEN [employer] - MEDICAL EQUIPMENT PROVIDER * List name and contact numbers for known caregivers / representatives who currently or will assist patient after discharge: ADELINA TURNER, SON, AILYN DE LA O DTR, * Verbal permission to speak to the caregivers and representatives has been obtained from the patient. Yes * Community resources currently utilized Home Health Other * Please name any agencies selected above. [facility], MWF, 1115 AM, MEDICAID TRANSPORTATIN * Additional services required to return to the preadmission environment? No * Can the patient safely return to the preadmission environment? Yes * Has this patient been hospitalized within the prior 30 days at any hospital? Yes Coverage Notice Reviewer: [id number] Rachel Maxwell Notice Issued Date-Time: 10/08/2018 14:35 Notice Type: IM Discharge Notice Notice Delivered To: Family Member Relationship to Patient: Son Care Transition Manager Name: ADELINA TURNER Delivery Method: HAND - Hand Delivered Margarita Days: Prior Verbal Notification: Recipient Understood Notice: Yes Recipient Signature: Yes Med Rec Note Co-signed by Attending: Coverage Notice Comment: Last DP export: 10/17/18 8:28 Patient Name: MERYL SPARKS Page [id number] at 1118 All edits/amendments must be made on the electronic document DICTATION DATE: 10/18/181117 BILLING ASSISTANT: VINCENZO 10/18/181117 RPT#: [id number] DC DATE: STATUS: ADM IN [facility] [address] [place] [address] END OF REPORT
--- NOTE | ~2018-10-05 | MORECARE ---
CASE MANAGEMENT DISCHARGE SUMMARY PATIENT: MERYL SPARKS UNIT: [id number] ADM DATE: 10/05/18 AGE: 78 : 38 SEX: F ROOM/BED: D.2183 AUTHOR: MEHREEN SINGH PHYSICIAN: REFERRING PHYSICIAN: KARINA JUÁREZ MD DATE OF SERVICE: 10/15/18 Discharge Plan Patient Name: MERYL SPARKS Facility: [facility]:[place] : 1940 Planned Disposition: Home with Home Health Anticipated Discharge Date: Discharge Date: Expected LOS: Initial Reviewer: [id number] Initial Review Date: 10/05/2018 Generated: 10/15/18 6:23 pm Comments DCP- Discharge Planning Updated by [id number]: Pascual Maxwell on 10/08/18 3:[address] Patient Name: MERYL SPARKS Admission Status: Urgent Accout number: [id number] Admission Date: 10-05-2018 : 1940 Admission Diagnosis:OTH COMPLICATION OF VASCULAR PROSTH DEV/GRFT, INIT Attending: KARINA JUÁREZ Current LOS: 3 Anticipated DC Date: Planned Disposition: Home with Home Health Primary Insurance: MEDICARE A & B PLANNED EXTERNAL PROVIDER: [facility] OFFICE Discharge Planning Comments: CM RECEIVED MESSAGE THAT PT'S FAMILY WANTED INFORMATION ON LOCAL HOTELS. CM MET WITH PT AND SON IN ROOM TO DISCUSS DISCHARGE PLANNING AND NEEDS. MERYL SPARKS provided verbal consent to discuss current and ongoing needs with/in the presence of: SON, ADELINA TURNER. PT REPORTS LIVING AT HOME DEPENDENTLY ON ADULT SON. PT'S DAUGHTER ASSISTS WITH MEDICATION MANAGEMENT AND HOME HEALTH AIDE HAS BEEN ASSISTING WITH BATHING. PT IS IN DEPENDENT OTHERWISE IN THE HOME. PT HAS HOME AND PORTABLE OXYGEN WELL WALKER AND STANDARD WHEELCHAIR FROM [facility]. PT HAS HOME HEALTH WITH [facility]. CM DISCUSSED AVAILABILITY OF HOME HEALTH, REHAB SERVICES AND MEDICAL EQUIPMENT. PT DENIES DISCHARGE NEEDS OTHER THAN HER HOME HEALTH, REPORTS PLAN TO RETURN HOME WITH SON, FAMILY WILL PICK PT UP FOR DISCHARGE HOME. IMPORTANT MESSAGE FROM MEDICARE PROVIDED AND EXPLAINED. CM PROVIDED LOCAL HOTEL INFORMATON ALONG WITH DISCOUNT CARD TO [facility]. CM CALLED [facility], , SPOKE TO ADDY WHO VERIFIED PT ACTIVE AND ON HOLD FOR HOME HEALTH NURSING AND PHYSICAL THERAPY. CM FAXED HOSPITAL UPDATE TO [facility] AT [phone]. FOR DISCHARGE HOME WITH HOME HEALTH, NOTIFY [facility] AT [phone], FAX DISCHARGE INFORMATION TO [facility] AT [phone]. Progressive Care Nurse: Pascual Maxwell DCPIA - Discharge Planning Initial Assessment Updated by [id number]: Pascual Maxwell on 10/08/18 4:35 pm * Is the patient Alert and Oriented? Yes * How many steps to enter\exit or inside your home? RAMP * PCP DR. MAGAÑA, [place] * Pharmacy [facility] IN [place] * Preadmission Environment Home with Family * ADLs Partial Dependent * Partial ADLs (Assistance needed) Bathing Medication Management * Equipment Oxygen Walker Wheelchair * Other Equipment HOME AND PORTABLE OXYGEN [employer] - MEDICAL EQUIPMENT PROVIDER * List name and contact numbers for known caregivers / representatives who currently or will assist patient after discharge: ADELINA TURNER, SON, AILYN DE LA O DTR, * Verbal permission to speak to the caregivers and representatives has been obtained from the patient. Yes * Community resources currently utilized Home Health Other * Please name any agencies selected above. [facility], MWF, 1115 AM, MEDICAID TRANSPORTATIN * Additional services required to return to the preadmission environment? No * Can the patient safely return to the preadmission environment? Yes * Has this patient been hospitalized within the prior 30 days at any hospital? Yes Coverage Notice Reviewer: [id number] - Pascual Maxwell Notice Issued Date-Time: 10/08/2018 14:35 Notice Type: IM Discharge Notice Notice Delivered To: Family Member Relationship to Patient: Son Hospital Corpsman Name: ADELINA TURNER Delivery Method: HAND - Hand Delivered Margarita Days: Prior Verbal Notification: Recipient Understood Notice: Yes Recipient Signature: Yes Med Rec Note Co-signed by Attending: Coverage Notice Comment: Last DP export: 10/08/18 3:57 p Patient Name: MERYL SPARKS Page 28845 at 6876 All edits/amendments must be made on the electronic document DICTATION DATE: 10/15/181722 RECRUITER: VINCENZO 10/15/181722 RPT#: [id number] DC DATE: STATUS: ADM IN [facility] [address] [place] [address] END OF REPORT
--- NOTE | ~2018-10-05 | CN ---
PATIENT NAME:MERYL SPARKS MEDICAL RECORD: [id number] : 36 LOCATION:D. D.2113 ADMIT DATE: 10/05/18 ACCOUNT: [id number] CONSULTING PHYSICIAN: DAMION BOBO MD REFERRING PHYSICIAN: KARINA JUÁREZ MD DATE OF CONSULTATION: 10/17/2018 HISTORY OF PRESENT ILLNESS: An 78-year-old female admitted with ischemic left hand status post repair via Dr. Davidson. She has a history of chronic renal insufficiency, dementia, somewhat frail and elderly, this morning rapid response was called. I was consulted, found to be in atrial fibrillation, rate is mildly elevated. She is minimally responsive. I did have the opportunity to talk with with nephrology and family. We are asked to see her concerning her cardiovascular status. PAST MEDICAL HISTORY: Includes: 1. History of end-stage renal disease, on dialysis. 2. Hypothyroidism, on replacement. 3. Diabetes mellitus. 4. 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 5. Dyslipidemia. 6. Dementia. ALLERGIES: OXYCODONE, PROPOXYPHENE, ACETAMINOPHEN. MEDICATIONS: On admit include Lasix 40 mg Thursday, Thursday, , Thursday; losartan 50 b.i.d.; benazepril 5 mg q.h.s.; Synthroid 200 mcg every day; Protonix 40 every day; atorvastatin 20 every day; hydralazine 50 t.i.d.; amlodipine 10 every day; Reglan; carvedilol 25 b.i.d.; insulin per scale. SOCIAL HISTORY: Nonsmoker, nondrinker. Good family support. Trouble to do ADLs due to frailty and dementia. REVIEW OF SYSTEMS: Unobtainable at this point. PHYSICAL EXAMINATION: GENERAL: Somewhat obtunded female. VITAL SIGNS: Blood pressure 80/64, pulse 142. HEENT: Normocephalic, atraumatic. NECK: No bruits are noted. HEART: Irregular, tachycardic, II/ systolic ejection murmur. LUNGS: Fairly good air excursion. ABDOMEN: Soft, nontender. EXTREMITIES: Pulses are decreased, 1+. There is no edema. IMPRESSION: Frail elderly female with a fairly rapid deterioration in an ironically chronically ill state. A CT of head has been scheduled to rule out CVA. Certainly pulmonary embolus is a possibility to include new onset of atrial fibrillation. Discussed with the family in detail, but at this point in time they would like full measures including intubated until further family members are present. TRANSINT:[id number] Voice Confirmation ID: [id number] DOCUMENT ID: [id number] CONSULT REPORT [id number] MERYL SPARKS,DAMION Clark MD at 1546 CC: [id number] DICTATION DATE: 10/17/18 1134 MANAGER COMMISSION: 10/17/18 1200 DIS IN 10/19/18 [place] [id number] [place] [address]
--- NOTE | ~2018-10-05 | MORECARE ---
CASE MANAGEMENT DISCHARGE SUMMARY PATIENT: MERYL SPARKS UNIT: [id number] ADM DATE: 10/05/18 AGE: 78 : 38 SEX: F ROOM/BED: D.[facility] AUTHOR: MEHREEN SINGH PHYSICIAN: REFERRING PHYSICIAN: KARINA JUÁREZ MD DATE OF SERVICE: 10/18/18 Discharge Plan Patient Name: MERYL SPARKS Facility: [facility]:[place] : 1940 Planned Disposition: Home with Hospice Anticipated Discharge Date: 10/19/18 Discharge Date: Expected LOS: 14 Initial Reviewer: [id number] Initial Review Date: 10/05/2018 Generated: 10/18/18 5:09 pm Comments DCP- Discharge Planning Updated by [email or web address]: Drea Claros on 10/17/18 8:[address] DAY CM MANAGE LEFT NOTE REGARDING LATE PM REQUEST FOR DISCHARGE PLANNING. WEEKEND CM UNABLE TO SEE PATIENT OR FAMILY THURSDAY DUE TO VOLUME OF DISCHARGES FOR SINGLE CM. CM TO UNIT THIS AM AND PATIENT WAS BEING TRANSFERED TO ICU POST RAPID RESPONSE. DISCUSSION IN ICU REGARDING CODE STATUS DUE TO VARYING DEGREES OF STABILITY. DO NOT INTUBATE/ NO COMPRESSIONS/ NO MEDS. PATIENT TRANSFERED BACK TO MED 2 THIS PM. PATIENT WITH 2 ADDITIONAL EPISODES OF INSTABILITY AND DIFFICULTY BREATHING. CM WILL F/U IN THE AM FOR TRANSFERE TO SKILLED FACILITY. THREE FACILITIES IN THE [facility]. QUESTION WOULD HOSPICE CONSULT BE APPROPRAITE. DCP- Discharge Planning Updated by [id number]: Pascual Maxwell on 10/08/18 3:[address] Patient Name: MERYL SPARKS Admission Status: Urgent Accout number: [id number] Admission Date: 10-05-2018 : 1940 Admission Diagnosis:OTH COMPLICATION OF VASCULAR PROSTH DEV/GRFT, INIT Attending: KARINA JUÁREZ Current LOS: 3 Anticipated DC Date: Planned Disposition: Home with Home Health Primary Insurance: MEDICARE A & B PLANNED EXTERNAL PROVIDER: [facility] OFFICE Discharge Planning Comments: CM RECEIVED MESSAGE THAT PT'S FAMILY WANTED INFORMATION ON LOCAL HOTELS. CM MET WITH PT AND SON IN ROOM TO DISCUSS DISCHARGE PLANNING AND NEEDS. MERYL SPARKS provided verbal consent to discuss current and ongoing needs with/in the presence of: SON, ADELINA TURNER. PT REPORTS LIVING AT HOME DEPENDENTLY ON ADULT SON. PT'S DAUGHTER ASSISTS WITH MEDICATION MANAGEMENT AND HOME HEALTH AIDE HAS BEEN ASSISTING WITH BATHING. PT IS IN DEPENDENT OTHERWISE IN THE HOME. PT HAS HOME AND PORTABLE OXYGEN WELL WALKER AND STANDARD WHEELCHAIR FROM [facility]. PT HAS HOME HEALTH WITH [facility]. CM DISCUSSED AVAILABILITY OF HOME HEALTH, REHAB SERVICES AND MEDICAL EQUIPMENT. PT DENIES DISCHARGE NEEDS OTHER THAN HER HOME HEALTH, REPORTS PLAN TO RETURN HOME WITH SON, FAMILY WILL PICK PT UP FOR DISCHARGE HOME. IMPORTANT MESSAGE FROM MEDICARE PROVIDED AND EXPLAINED. PROVIDED LOCAL HOTEL INFORMATON ALONG WITH DISCOUNT CARD TO [facility]. CM CALLED [facility], , SPOKE TO ADDY WHO VERIFIED PT ACTIVE AND ON HOLD FOR HOME HEALTH NURSING AND PHYSICAL THERAPY. CM FAXED HOSPITAL UPDATE TO [facility] AT [phone]. FOR DISCHARGE HOME WITH HOME HEALTH, NOTIFY [facility] AT [phone], FAX DISCHARGE INFORMATION TO [facility] AT [phone]. Clam Dredge Boat Captain: Pascual Maxwell DCPIA - Discharge Planning Initial Assessment Updated by [id number]: Pascual Maxwell on 10/08/18 4:35 pm * Is the patient Alert and Oriented? Yes * How many steps to enter\exit or inside your home? RAMP * PCP DR. MAGAÑA [place] * Pharmacy [facility] IN [place] * Preadmission Environment Home with Family * ADLs Partial Dependent * Partial ADLs (Assistance needed) Bathing Medication Management * Equipment Oxygen Walker Wheelchair * Other Equipment HOME AND PORTABLE OXYGEN [employer] - MEDICAL EQUIPMENT PROVIDER * List name and contact numbers for known caregivers / representatives who currently or will assist patient after discharge: ADELINA TURNER, SON, AILYN DE LA O DTR, * Verbal permission to speak to the caregivers and representatives has been obtained from the patient. Yes * Community resources currently utilized Home Health Other * Please name any agencies selected above. [facility], MWF, 1115 AM, MEDICAID TRANSPORTATIN * Additional services required to return to the preadmission environment? No * Can the patient safely return to the preadmission environment? Yes * Has this patient been hospitalized within the prior 30 days at any hospital? Yes Coverage Notice Reviewer: [id number] Rachel Maxwell Notice Issued Date-Time: 10/08/2018 14:35 Notice Type: IM Discharge Notice Notice Delivered To: Family Member Relationship to Patient: Son Bark Skinner Name: ADELINA TURNER Delivery Method: HAND - Hand Delivered Margarita Days: Prior Verbal Notification: Recipient Understood Notice: Yes Recipient Signature: Yes Med Rec Note Co-signed by Attending: Coverage Notice Comment: Last DP export: 10/18/18 10:18 Patient Name: MERYL SPARKS Page 27522 at 1609 All edits/amendments must be made on the electronic document DICTATION DATE: 10/18/181607 ORGANIZATIONAL PSYCHOLOGIST: VINCENZO 10/18/181607 RPT#: [id number] DC DATE: STATUS: ADM IN [facility] [address] [place] [address] END OF REPORT
--- NOTE | ~2018-10-05 | MORECARE ---
CASE MANAGEMENT DISCHARGE SUMMARY PATIENT: MERYL SPARKS UNIT: [id number] ADM DATE: 10/05/18 AGE: 78 : 38 SEX: F ROOM/BED: D.6713 AUTHOR: MEHREEN SINGH PHYSICIAN: REFERRING PHYSICIAN: KARINA JUÁREZ MD DATE OF SERVICE: 10/19/18 Discharge Plan Patient Name: MERYL SPARKS Facility: [facility]:[place] : 1940 Planned Disposition: Home with Hospice Anticipated Discharge Date: 10/19/18 Discharge Date: 10/19/2018 Expected LOS: 14 Initial Reviewer: [id number] Initial Review Date: 10/05/2018 Generated: 10/19/18 4:29 pm Comments DCP- Discharge Planning Updated by [email or web address]: Pascual Maxwell on 10/19/18 2:[address] Patient Name: MERYL SPARKS Encounter No: [id number] : 1940 Primary Insurance: MEDICARE A & B Anticipated DC Date: 10-19-2018 Planned Disposition: Home with Hospice External Planned Provider: [facility] DCP follow-up note: CM RECEIVED NOTE FROM NATANAEL JUÁREZ, NURSE FOR [facility] INDCIATING PT HAS BEEN APPROVED FOR HOME HOSPICE AND THEY WILL ADMIT TO HOSPICE UPON PT'S ARRIVAL AT HOME. CM SPOKE TO PT'S DAUGHTER, AILYN DE LA O, WHO REPORTS ALL ARRANGEMENTS ARE COMPLETED, ALL EQUIPMENT AT HOME, THEY ARE IN AGREEMENT WITH DISCHARGE HOME TODAY WITH [facility]. CM NOTIFIED DR. BOND. CM RECEIVED DISCHARGE ORDERS, CM FAXED DISCHARGE INFORMATION TO [facility] AT [phone]. NOTIFY [facility] WHEN PT LEAVES BY AMBULANCE AT [phone]. PT TO BE DISCHARGED HOME VIA AMBULANCE. Pascual Maxwell, CASE MANAGEMENT Appended by Pascual Maxwell on 10/19/2018 15:22 PICTURE FRAMER: CM NOTIFIED CARINA WITH [facility] THAT PT LEFT VIA AMBULANCE AT APPROXIMATELY 1450 HOURS; [phone]. EVA GODINEZ DCP- Discharge Planning Updated by [id number]: Pascual Maxwell on 10/18/18 3:[address] Patient Name: MERYL SPARKS Encounter No: [id number] : 6 Primary Insurance: MEDICARE A & B Anticipated DC Date: 10-19-2018 Planned Disposition: Home with Hospice External Planned Provider: [facility] DCP follow-up note: CM RECEIVED HOSPICE ORDER, MET WITH PT AND FAMILY IN ROOM. PT DID NOT AROUSE DURING CONSULT. PT'S DAUGHTER, AILYN DE LA O, REPORTS THEY HAVE DISCUSSED HOSPICE WITH PT, ALL ARE IN AGREEMENT WITH HOSPICE LONG PT WILL HAVE PAIN CONTROL. THEY WANT TO TAKE PT TO HER HOME FOR HOSPICE AT PT'S REQUEST. DAUGHTER REPORTS UNDERSTANDING OF HOSPICE CARE AND UNDERSTANDS THE FAMILY WILL NEED TO PROVIDE 24 HOUR CARE FOR PT AT HOME. HOSPICE PROVIDERS AND LOCATIONS DISCUSSED. DAUGHTER REQUESTED [facility] THEY USED [facility] FOR ANOTHER FAMILY MEMBER IN THE PAST AND RECEIVED VERY GOOD CARE. CM PROVIDED AND DISCUSSED IMPORTANT MESSAGE FROM MEDICARE. CM CALLED [facility], , SPOKE TO ANDI AND PROVIDED REFERRAL INFORMATION. ANDI WILL HAVE HOSPICE NURSE TO EVALUATE PT TONIGHT AND SPEAK TO PT'S DAUGHTER; [place] OFFICE OF [facility] WILL COORDINATE DELIVERY OF MEDICAL EQUIPMENT AND REFERRAL FOR SERVICES WITH THE [place] [facility]. CM FAXED REFERRAL TO [facility] AT [phone]. CM WAITING HOSPICE EVALUATION AND ARRANGEMENT OF HOME EQUIPMENT TO BE COMPLETED BY [facility] FOR PT TO BE DISCHARGED HOME VIA AMBULANCE. Pascual Maxwell, CASE MANAGEMENT DCP- Discharge Planning Updated by [id number]: Drea Claros on 10/17/18 8:[address] DAY CM MANAGE LEFT NOTE REGARDING LATE PM REQUEST FOR DISCHARGE PLANNING. WEEKEND CM UNABLE TO SEE PATIENT OR FAMILY THURSDAY DUE TO VOLUME OF DISCHARGES FOR SINGLE CM. CM TO UNIT THIS AM AND PATIENT WAS BEING TRANSFERED TO ICU POST RAPID RESPONSE. DISCUSSION IN ICU REGARDING CODE STATUS DUE TO VARYING DEGREES OF STABILITY. DO NOT INTUBATE/ NO COMPRESSIONS/ NO MEDS. PATIENT TRANSFERED BACK TO MED 2 THIS PM. PATIENT WITH 2 ADDITIONAL EPISODES OF INSTABILITY AND DIFFICULTY BREATHING. CM WILL F/U IN THE AM FOR TRANSFERE TO SKILLED FACILITY. THREE FACILITIES IN THE [facility]. QUESTION WOULD HOSPICE CONSULT BE APPROPRAITE. DCP- Discharge Planning Updated by [id number]: Pascual Maxwell on 10/08/18 3:[address] Patient Name: MERYL SPARKS Admission Status: Urgent Accout number: [id number] Admission Date: 10-05-2018 : 1940 Admission Diagnosis:OTH COMPLICATION OF VASCULAR PROSTH DEV/GARY, INIT Attending: KARINA JUÁREZ Current LOS: 3 Anticipated DC Date: Planned Disposition: Home with Home Health Primary Insurance: MEDICARE A & B PLANNED EXTERNAL PROVIDER: [facility] OFFICE Discharge Planning Comments: CM RECEIVED MESSAGE THAT PT'S FAMILY WANTED INFORMATION ON LOCAL HOTELS. CM MET WITH PT AND SON IN ROOM TO DISCUSS DISCHARGE PLANNING AND NEEDS. MERYL SPARKS provided verbal consent to discuss current and ongoing needs with/in the presence of: SON, ADELINA TURNER. PT REPORTS LIVING AT HOME DEPENDENTLY ON ADULT SON. PT'S DAUGHTER ASSISTS WITH MEDICATION MANAGEMENT AND HOME HEALTH AIDE HAS BEEN ASSISTING WITH BATHING. PT IS IN DEPENDENT OTHERWISE IN THE HOME. PT HAS HOME AND PORTABLE OXYGEN WELL WALKER AND STANDARD WHEELCHAIR FROM [facility]. PT HAS HOME HEALTH WITH [facility]. CM DISCUSSED AVAILABILITY OF HOME HEALTH, REHAB SERVICES AND MEDICAL EQUIPMENT. PT DENIES DISCHARGE NEEDS OTHER THAN HER HOME HEALTH, REPORTS PLAN TO RETURN HOME WITH SON, FAMILY WILL PICK PT UP FOR DISCHARGE HOME. IMPORTANT MESSAGE FROM MEDICARE PROVIDED AND EXPLAINED. CM PROVIDED LOCAL HOTEL INFORMATON ALONG WITH DISCOUNT CARD TO [facility] ON [facility]. CM CALLED [facility], , SPOKE TO ADDY WHO VERIFIED PT ACTIVE AND ON HOLD FOR HOME HEALTH NURSING AND PHYSICAL THERAPY. CM FAXED HOSPITAL UPDATE TO [facility] AT [phone]. FOR DISCHARGE HOME WITH [facility], NOTIFY [facility] AT [phone], FAX DISCHARGE INFORMATION TO [facility] AT [phone]. Cryptologic Support Specialist: Pascual Maxwell DCPIA - Discharge Planning Initial Assessment Updated by [id number]: Pascual Maxwell on 10/08/18 4:35 pm * Is the patient Alert and Oriented? Yes * How many steps to enter\exit or inside your home? RAMP * PCP DR. MAGAÑA [place] * Pharmacy [facility] IN [place] * Preadmission Environment Home with Family * ADLs Partial Dependent * Partial ADLs (Assistance needed) Bathing Medication Management * Equipment Oxygen Walker Wheelchair * Other Equipment HOME AND PORTABLE OXYGEN [employer] - MEDICAL EQUIPMENT PROVIDER * List name and contact numbers for known caregivers / representatives who currently or will assist patient after discharge: ADELINA TURNER, SON, AILYN DE LA O, DTR, * Verbal permission to speak to the caregivers and representatives has been obtained from the patient. Yes * Community resources currently utilized Home Health Other * Please name any agencies selected above. [facility], MWF, 1115 AM, MEDICAID TRANSPORTATIN * Additional services required to return to the preadmission environment? No * Can the patient safely return to the preadmission environment? Yes * Has this patient been hospitalized within the prior 30 days at any hospital? Yes Coverage Notice Reviewer: JETT Maxwell Notice Issued Date-Time: 10/08/2018 14:35 Notice Type: IM Discharge Notice Notice Delivered To: Family Member Relationship to Patient: Son Tube Buffer Name: ADELINA TURNER Delivery Method: HAND - Hand Delivered Margarita Days: Prior Verbal Notification: Recipient Understood Notice: Yes Recipient Signature: Yes Med Rec Note Co-signed by Attending: Coverage Notice Comment: Reviewer: JETT Maxwell Notice Issued Date-Time: 10/18/2018 15:55 Notice Type: IM Discharge Notice Notice Delivered To: Patient Relationship to Patient: Tube Buffer Name: Delivery Method: HAND - Hand Delivered Margarita Days: Prior Verbal Notification: Recipient Understood Notice: Yes Recipient Signature: Yes Med Rec Note Co-signed by Attending: Coverage Notice Comment: Last DP export: 10/19/18 10:52 Patient Name: MERYL SPARKS Page 39899 at 1529 All edits/amendments must be made on the electronic document DICTATION DATE: 10/19/18 152 INTERNET MARKETER: VINCENZO 10/19/18 1529 RPT#: [id number] DC DATE:10/19/18 STATUS: DIS IN [facility] [address] [place] [address] END OF REPORT
--- NOTE | ~2018-10-05 | MORECARE ---
CASE MANAGEMENT DISCHARGE SUMMARY PATIENT: MERYL SPARKS UNIT: [id number] ADM DATE: 10/05/18 AGE: 78 : 38 SEX: F ROOM/BED: D.[facility]3 AUTHOR: MEHREEN SINGH PHYSICIAN: REFERRING PHYSICIAN: KARINA JUÁREZ MD DATE OF SERVICE: 10/18/18 Discharge Plan Patient Name: MERYL SPARKS Facility: [facility]:[place] : 1940 Planned Disposition: Home with Hospice Anticipated Discharge Date: 10/19/18 Discharge Date: Expected LOS: 14 Initial Reviewer: [id number] Initial Review Date: 10/05/2018 Generated: 10/18/18 5:19 pm Comments DCP- Discharge Planning Updated by [email or web address]: Drea Claros on 10/17/18 8:[address] DAY CM MANAGE LEFT NOTE REGARDING LATE PM REQUEST FOR DISCHARGE PLANNING. WEEKEND CM UNABLE TO SEE PATIENT OR FAMILY THURSDAY DUE TO VOLUME OF DISCHARGES FOR SINGLE CM. CM TO UNIT THIS AM AND PATIENT WAS BEING TRANSFERED TO ICU POST RAPID RESPONSE. DISCUSSION IN ICU REGARDING CODE STATUS DUE TO VARYING DEGREES OF STABILITY. DO NOT INTUBATE/ NO COMPRESSIONS/ NO MEDS. PATIENT TRANSFERED BACK TO MED 2 THIS PM. PATIENT WITH 2 ADDITIONAL EPISODES OF INSTABILITY AND DIFFICULTY BREATHING. CM WILL F/U IN THE AM FOR TRANSFERE TO SKILLED FACILITY. [facility]. QUESTION WOULD HOSPICE CONSULT BE APPROPRAITE. DCP- Discharge Planning Updated by [id number]: Pascual Maxwell on 10/08/18 3:[address] Patient Name: MERYL SPARKS Admission Status: Urgent Accout number: [id number] Admission Date: 10-05-2018 : 1940 Admission Diagnosis:OTH COMPLICATION OF VASCULAR PROSTH DEV/GRFT, INIT Attending: KARINA JUÁREZ Current LOS: 3 Anticipated DC Date: Planned Disposition: Home with Home Health Primary Insurance: MEDICARE A & B PLANNED EXTERNAL PROVIDER: [facility] Discharge Planning Comments: CM RECEIVED MESSAGE THAT PT'S FAMILY WANTED INFORMATION ON LOCAL HOTELS. CM MET WITH PT AND SON IN ROOM TO DISCUSS DISCHARGE PLANNING AND NEEDS. MERYL SPARKS provided verbal consent to discuss current and ongoing needs with/in the presence of: SON, ADELINA TURNER. PT REPORTS LIVING AT HOME DEPENDENTLY ON ADULT SON. PT'S DAUGHTER ASSISTS WITH MEDICATION MANAGEMENT AND HOME HEALTH AIDE HAS BEEN ASSISTING WITH BATHING. PT IS IN DEPENDENT OTHERWISE IN THE HOME. PT HAS HOME AND PORTABLE OXYGEN WELL WALKER AND STANDARD WHEELCHAIR FROM [employer]. PT HAS HOME HEALTH WITH [facility]. CM DISCUSSED AVAILABILITY OF HOME HEALTH, REHAB SERVICES AND MEDICAL EQUIPMENT. PT DENIES DISCHARGE NEEDS OTHER THAN HER HOME HEALTH, REPORTS PLAN TO RETURN HOME WITH SON, FAMILY WILL PICK PT UP FOR DISCHARGE HOME. IMPORTANT MESSAGE FROM MEDICARE PROVIDED AND EXPLAINED. PROVIDED LOCAL HOTEL INFORMATON ALONG WITH DISCOUNT CARD TO [facility]. CM CALLED [facility], , SPOKE TO ADDY WHO VERIFIED PT ACTIVE AND ON HOLD FOR HOME HEALTH NURSING AND PHYSICAL THERAPY. CM FAXED HOSPITAL UPDATE TO [facility] AT [phone]. FOR DISCHARGE HOME WITH HOME HEALTH, NOTIFY [facility] AT [phone], FAX DISCHARGE INFORMATION TO [facility] AT [phone]. Prescription Clerk Lenses: Pascual Maxwell DCPIA - Discharge Planning Initial Assessment Updated by [id number]: Pascual Maxwell on 10/08/18 4:35 pm * Is the patient Alert and Oriented? Yes * How many steps to enter\exit or inside your home? RAMP * PCP DR. [facility] [place] * Pharmacy [facility] [place] * Preadmission Environment Home with Family * ADLs Partial Dependent * Partial ADLs (Assistance needed) Bathing Medication Management * Equipment Oxygen Walker Wheelchair * Other Equipment HOME AND PORTABLE OXYGEN [employer] - MEDICAL EQUIPMENT PROVIDER * List name and contact numbers for known caregivers / representatives who currently or will assist patient after discharge: ADELINA TURNER, SON, AILYN DE LA O DTR, * Verbal permission to speak to the caregivers and representatives has been obtained from the patient. Yes * Community resources currently utilized Home Health Other * Please name any agencies selected above. [facility], MWF, 1115 AM, MEDICAID TRANSPORTATIN * Additional services required to return to the preadmission environment? No * Can the patient safely return to the preadmission environment? Yes * Has this patient been hospitalized within the prior 30 days at any hospital? Yes External Providers External Provider: [facility] *(provides inpt [facility] Next Contact Date: 10/18/2018 Service Request Date: Service Type: Resolution: Reviewer: Comments: Coverage Notice Reviewer: [id number] Rachel Maxwell Notice Issued Date-Time: 10/08/2018 14:35 Notice Type: IM Discharge Notice Notice Delivered To: Family Member Relationship to Patient: Son An/Sqq 89(V)15 Sonar System Journeyman Name: ADELINA TURNER Delivery Method: HAND - Hand Delivered Margarita Days: Prior Verbal Notification: Recipient Understood Notice: Yes Recipient Signature: Yes Med Rec Note Co-signed by Attending: Coverage Notice Comment: Last DP export: 10/18/18 3:09 Patient Name: MERYL SPARKS Page [id number] at 1619 All edits/amendments must be made on the electronic document DICTATION DATE: 10/18/181617 DAY PORTER: VINCENZO 10/18/181617 RPT#: [id number] DC DATE: STATUS: ADM IN [facility] [address] [place] [address] END OF REPORT
--- NOTE | ~2018-10-05 | MORECARE ---
CASE MANAGEMENT DISCHARGE SUMMARY PATIENT: MERYL SPARKS UNIT: [id number] ADM DATE: 10/05/18 AGE: 78 : 38 SEX: F ROOM/BED: D.[facility] AUTHOR: MEHREEN SINGH PHYSICIAN: REFERRING PHYSICIAN: KARINA JUÁREZ MD DATE OF SERVICE: 10/17/18 Discharge Plan Patient Name: MERYL SPARKS Facility: [facility]:[place] : 1940 Planned Disposition: Home with Home Health Anticipated Discharge Date: Discharge Date: Expected LOS: Initial Reviewer: [id number] Initial Review Date: 10/05/2018 Generated: 10/17/18 10:28 pm Comments DCP- Discharge Planning Updated by [email or web address]: Drea Claros on 10/17/18 8:[address] DAY CM MANAGE LEFT NOTE REGARDING LATE PM REQUEST FOR DISCHARGE PLANNING. WEEKEND CM UNABLE TO SEE PATIENT OR FAMILY THURSDAY DUE TO VOLUME OF DISCHARGES FOR SINGLE CM. CM TO UNIT THIS AM AND PATIENT WAS BEING TRANSFERED TO ICU POST RAPID RESPONSE. DISCUSSION IN ICU REGARDING CODE STATUS DUE TO VARYING DEGREES OF STABILITY. DO NOT INTUBATE/ NO COMPRESSIONS/ NO MEDS. PATIENT TRANSFERED BACK TO MED 2 THIS PM. PATIENT WITH 2 ADDITIONAL EPISODES OF INSTABILITY AND DIFFICULTY BREATHING. CM WILL F/U IN THE AM FOR TRANSFERE TO SKILLED FACILITY. THREE FACILITIES IN THE [facility]. QUESTION WOULD HOSPICE CONSULT BE APPROPRAITE. DCP- Discharge Planning Updated by [id number]: Pascual Maxwell on 10/08/18 3:[address] Patient Name: MERYL SPARKS Admission Status: Urgent Accout number: [id number] Admission Date: 10-05-2018 : 1940 Admission Diagnosis:OTH COMPLICATION OF VASCULAR PROSTH DEV/GRFT, INIT Attending: KARINA JUÁREZ Current LOS: 3 Anticipated DC Date: Planned Disposition: Home with Home Health Primary Insurance: MEDICARE A & B PLANNED EXTERNAL PROVIDER: [facility] OFFICE Discharge Planning Comments: CM RECEIVED MESSAGE THAT PT'S FAMILY WANTED INFORMATION ON LOCAL HOTELS. CM MET WITH PT AND SON IN ROOM TO DISCUSS DISCHARGE PLANNING AND NEEDS. MERYL SPARKS provided verbal consent to discuss current and ongoing needs with/in the presence of: SONADELINA. PT REPORTS LIVING AT HOME DEPENDENTLY ON ADULT SON. PT'S DAUGHTER ASSISTS WITH MEDICATION MANAGEMENT AND HOME HEALTH AIDE HAS BEEN ASSISTING WITH BATHING. PT IS IN DEPENDENT OTHERWISE IN THE HOME. PT HAS HOME AND PORTABLE OXYGEN WELL WALKER AND STANDARD WHEELCHAIR FROM [employer]. PT HAS HOME HEALTH WITH [facility]. CM DISCUSSED AVAILABILITY OF HOME HEALTH, REHAB SERVICES AND MEDICAL EQUIPMENT. PT DENIES DISCHARGE NEEDS OTHER THAN HER HOME HEALTH, REPORTS PLAN TO RETURN HOME WITH SON, FAMILY WILL PICK PT UP FOR DISCHARGE HOME. IMPORTANT MESSAGE FROM MEDICARE PROVIDED AND EXPLAINED. PROVIDED LOCAL HOTEL INFORMATON ALONG WITH DISCOUNT CARD TO [facility] ON [facility]. CM CALLED [facility], , SPOKE TO ADDY WHO VERIFIED PT ACTIVE AND ON HOLD FOR HOME HEALTH NURSING AND PHYSICAL THERAPY. CM FAXED HOSPITAL UPDATE TO [facility] AT [phone]. FOR DISCHARGE HOME WITH HOME HEALTH, NOTIFY [facility] AT [phone], FAX DISCHARGE INFORMATION TO [facility] AT [phone]. Winch Driver: Pascual Maxwell DCPIA - Discharge Planning Initial Assessment Updated by [email or web address]: Pascual Maxwell on 10/08/18 4:35 pm * Is the patient Alert and Oriented? Yes * How many steps to enter\exit or inside your home? RAMP * PCP DR. MAGAÑA, [place] * Pharmacy [facility] [place] * Preadmission Environment Home with Family * ADLs Partial Dependent * Partial ADLs (Assistance needed) Bathing Medication Management * Equipment Oxygen Walker Wheelchair * Other Equipment HOME AND PORTABLE OXYGEN [employer] - MEDICAL EQUIPMENT PROVIDER * List name and contact numbers for known caregivers / representatives who currently or will assist patient after discharge: ADELINA TURNER, SON, AILYN DE LA O DTR, * Verbal permission to speak to the caregivers and representatives has been obtained from the patient. Yes * Community resources currently utilized Home Health Other * Please name any agencies selected above. [facility], MWF, 1115 AM, MEDICAID TRANSPORTATIN * Additional services required to return to the preadmission environment? No * Can the patient safely return to the preadmission environment? Yes * Has this patient been hospitalized within the prior 30 days at any hospital? Yes Coverage Notice Reviewer: [id number] Rachel Maxwell Notice Issued Date-Time: 10/08/2018 14:35 Notice Type: IM Discharge Notice Notice Delivered To: Family Member Relationship to Patient: Son Town Administrator Name: ADELINA TURNER Delivery Method: HAND - Hand Delivered Margarita Days: Prior Verbal Notification: Recipient Understood Notice: Yes Recipient Signature: Yes Med Rec Note Co-signed by Attending: Coverage Notice Comment: Last DP export: 10/15/18 4:24 Patient Name: MERYL SPARKS Page [id number] at 2128 All edits/amendments must be made on the electronic document DICTATION DATE: 10/17/182126 COUPON AND BOND COLLECTION CLERK: VINCENZO 10/17/182126 RPT#: [id number] DC DATE: STATUS: ADM IN [facility] [address] [place] [address] END OF REPORT
[2018-10-05 17:07] LABS: BASOPHILS 0.7 % (0-2); HEMATOCRIT 30.2 % (36.0-48.0); HEMOGLOBIN 9.4 g/dL (12-16); IMMATURE GRANULOCYTES 1.8 % (0-5); LYMPHOCYTES 19.2 % (15-50); MCH 30.6 pg (26.0-34.0); MCHC 31.1 g/dL (31.0-37.0); MCV 98.4 fL (80.0-100.0); MEAN PLATELET VOLUME 9.6 fL (7.4-10.4); MONOCYTES 9.6 % (2-11); NEUTROPHILS 62.7 % (40-80); PLATELET COUNT 217 10x3/uL (130-400); RBC 3.07 10x6/uL (4.00-5.40); RDW 14.6 % (11.5-14.5); WBC 5.5 10x3/uL (4.8-10.8)
[2018-10-05] MEDS ORDERED: DONEPEZIL HCL5 MG PO (17:08)
[2018-10-05] MEDS ORDERED: FUROSEMIDE40 MG PO (17:08)
[2018-10-05] MEDS ORDERED: COZAAR50 MG PO (17:08)
[2018-10-05] MEDS ORDERED: SYNTHROID200 MC1 PO (17:09)
[2018-10-05] MEDS ORDERED: PROTONIX40 MG PO (17:09)
[2018-10-05] MEDS ORDERED: HYDRALAZINE HCL50 MG PO (17:10)
[2018-10-05] MEDS ORDERED: LIPITOR20 MG PO (17:10)
[2018-10-05] MEDS ORDERED: REGLAN5 MG PO (17:11)
[2018-10-05] MEDS ORDERED: NORVASC10 MG PO (17:11)
[2018-10-05] MEDS ORDERED: RENVELA800 MG PO (17:12)
[2018-10-05] MEDS ORDERED: XANAX0.25 MG PO (17:14)
[2018-10-05] MEDS ORDERED: CLARITIN 10 MG10 MG PO ×2 (17:15→17:26)
[2018-10-05] MEDS ORDERED: COREG25 MG PO (17:15)
[2018-10-05] MEDS ORDERED: NORCO 10-325 TA1 TAB PO (17:17)
[2018-10-05] MEDS ORDERED: BASAGLAR K100 UNIT/1 SC (17:18)
[2018-10-05 17:19] LABS: APTT 39.6 SECONDS (22.8-39.4); INR 1.09 (0.85-1.17); PROTIME 13.6 SECONDS (11.6-15.0)
[2018-10-05] MEDS ORDERED: NOVOLOG100 UNIT/1 SQ (17:24)
[2018-10-05] MEDS ORDERED: BAYER CHEWABLE81 MG PO (17:25)
[2018-10-05] MEDS ORDERED: CHRONULAC30 ML PO (17:25)
[2018-10-05 17:27] LABS: ALBUMIN 2.7 g/dL (3.4-5.0); ANION GAP 14.3 mmol/L (8-16); BILIRUBIN - DIRECT 0.11 mg/dL (0.00-0.30); BILIRUBIN - INDIRECT 0.09 mg/dL (0.00-1.00); BILIRUBIN - TOTAL 0.2 mg/dL (0.2-1.3); CALCIUM 8.7 mg/dL (8.5-10.1); CARBON DIOXIDE 28.4 mmol/L (21.0-32.0); CREATININE - SERUM 5.1 mg/dL (0.6-1.3); POTASSIUM - SERUM 3.7 mmol/L (3.5-5.1); PROTEIN - SERUM 7.3 g/dL (6.4-8.2)
[2018-10-05] MEDS ORDERED: MIRALAX17 GM PO (17:27)
[2018-10-05] MEDS ORDERED: ALPHAGAN 0.2%5 ML LEFT EYE (17:29)
[2018-10-05] MEDS ORDERED: TRUSOPT 2 % OPT10 ML LEFT EYE (17:29)
[2018-10-05] MEDS ORDERED: XALATAN 0.0052.5 ML LEFT EYE (17:30)
[2018-10-05] MEDS ORDERED: CATAPRES0.1 MG PO (17:31)
[2018-10-05 17:37] VITALS: BP 143/56; BMI 26.6
[2018-10-05 21:07] VITALS: BP 154/59
[2018-10-06] VITALS (7 sets, daily range): BP systolic 100–169; BP diastolic 46–60; BMI 26.5
[2018-10-06 05:51] LABS: HEMATOCRIT 28.4 % (36.0-48.0); HEMOGLOBIN 8.8 g/dL (12-16); MCH 30.7 pg (26.0-34.0); MEAN PLATELET VOLUME 9.7 fL (7.4-10.4); PLATELET COUNT 230 10x3/uL (130-400); RBC 2.87 10x6/uL (4.00-5.40); RDW 14.5 % (11.5-14.5); WBC 5.4 10x3/uL (4.8-10.8)
[2018-10-06 05:53] LABS: ANION GAP 12.6 mmol/L (8-16); CALCIUM 8.6 mg/dL (8.5-10.1); CREATININE - SERUM 5.4 mg/dL (0.6-1.3); MAGNESIUM - SERUM 1.9 mg/dL (1.8-2.4); PHOSPHOROUS 4.3 mg/dL (2.5-4.9); POTASSIUM - SERUM 3.6 mmol/L (3.5-5.1)
[2018-10-06 07:21] LABS: EOSINOPHILS 3 % (0-7); LYMPHOCYTES 17 % (15-50); MONOCYTES 9 % (2-11); NEUTROPHILS 68 % (40-80); PLATELET ESTIMATE NORMAL; ROULEAUX OCC
[2018-10-06 19:13] LABS: BASOPHILS 0.7 % (0-2); EOSINOPHILS 5.6 % (0-7); HEMATOCRIT 27.9 % (36.0-48.0); HEMOGLOBIN 8.5 g/dL (12-16); IMMATURE GRANULOCYTES 0.9 % (0-5); LYMPHOCYTES 16.7 % (15-50); MCHC 30.5 g/dL (31.0-37.0); MCV 98.6 fL (80.0-100.0); MEAN PLATELET VOLUME 9.5 fL (7.4-10.4); MONOCYTES 8.8 % (2-11); NEUTROPHILS 67.3 % (40-80); PLATELET COUNT 197 10x3/uL (130-400); RBC 2.83 10x6/uL (4.00-5.40); RDW 14.2 % (11.5-14.5); WBC 4.4 10x3/uL (4.8-10.8)
[2018-10-07 03:55] VITALS: BP 144/65
[2018-10-07 05:23] LABS: BASOPHILS 0.3 % (0-2); EOSINOPHILS 0.3 % (0-7); IMMATURE GRANULOCYTES 0.8 % (0-5); LYMPHOCYTES 5.3 % (15-50); MCH 29.5 pg (26.0-34.0); MCHC 31.2 g/dL (31.0-37.0); MONOCYTES 6.5 % (2-11); NEUTROPHILS 86.8 % (40-80); PLATELET COUNT 229 10x3/uL (130-400); RDW 17.7 % (11.5-14.5)
[2018-10-07 05:39] LABS: HEMATOCRIT 33.7 % (36.0-48.0); HEMOGLOBIN 10.5 g/dL (12-16); MCV 94.7 fL (80.0-100.0); RBC 3.56 10x6/uL (4.00-5.40); WBC 11.8 10x3/uL (4.8-10.8)
[2018-10-07 05:47] LABS: ANION GAP 14.8 mmol/L (8-16); CALCIUM 8.7 mg/dL (8.5-10.1); CARBON DIOXIDE 25.8 mmol/L (21.0-32.0); CREATININE - SERUM 6.2 mg/dL (0.6-1.3); POTASSIUM - SERUM 4.6 mmol/L (3.5-5.1)
[2018-10-07 07:41] VITALS: BP 95/59
[2018-10-07 11:27] VITALS: BP 147/62
[2018-10-07 15:38] VITALS: BP 145/63
[2018-10-07 21:54] VITALS: BP 126/58
[2018-10-08] VITALS (7 sets, daily range): BP systolic 116–142; BP diastolic 51–103
[2018-10-08 05:27] LABS: BASOPHILS 0.5 % (0-2); CALCIUM 8.5 mg/dL (8.5-10.1); CARBON DIOXIDE 25.5 mmol/L (21.0-32.0); CREATININE - SERUM 4.9 mg/dL (0.6-1.3); EOSINOPHILS 0.3 % (0-7); HEMATOCRIT 29.5 % (36.0-48.0); HEMOGLOBIN 9.4 g/dL (12-16); LYMPHOCYTES 7.5 % (15-50); MCH 29.9 pg (26.0-34.0); MCHC 31.9 g/dL (31.0-37.0); MCV 93.9 fL (80.0-100.0); MEAN PLATELET VOLUME 9.8 fL (7.4-10.4); MONOCYTES 9.4 % (2-11); NEUTROPHILS 81.3 % (40-80); PLATELET COUNT 197 10x3/uL (130-400); POTASSIUM - SERUM 4.5 mmol/L (3.5-5.1); RBC 3.14 10x6/uL (4.00-5.40); RDW 17.8 % (11.5-14.5)
[2018-10-09 03:50] VITALS: BP 114/58
[2018-10-09 05:37] LABS: BASOPHILS 0.2 % (0-2); EOSINOPHILS 1.9 % (0-7); HEMATOCRIT 25.1 % (36.0-48.0); IMMATURE GRANULOCYTES 1.1 % (0-5); LYMPHOCYTES 10.7 % (15-50); MCH 29.7 pg (26.0-34.0); MCHC 31.9 g/dL (31.0-37.0); MCV 93.3 fL (80.0-100.0); MONOCYTES 10.9 % (2-11); NEUTROPHILS 75.2 % (40-80); PLATELET COUNT 182 10x3/uL (130-400); RBC 2.69 10x6/uL (4.00-5.40); RDW 17.1 % (11.5-14.5); WBC 8.8 10x3/uL (4.8-10.8)
[2018-10-09 06:06] LABS: ANION GAP 13.7 mmol/L (8-16); CALCIUM 8.2 mg/dL (8.5-10.1); CARBON DIOXIDE 28.7 mmol/L (21.0-32.0); POTASSIUM - SERUM 4.4 mmol/L (3.5-5.1)
[2018-10-09 06:22] LABS: CREATININE - SERUM 6.2 mg/dL (0.6-1.3)
[2018-10-09 08:06] VITALS: BP 123/51
[2018-10-09 15:50] VITALS: BP 118/53
[2018-10-09 19:45] VITALS: BP 127/53
[2018-10-09 23:55] VITALS: BP 129/53
[2018-10-10 03:45] VITALS: BP 115/50; BP 129/78
[2018-10-10 06:24] LABS: BASOPHILS 0.3 % (0-2); EOSINOPHILS 1.6 % (0-7); HEMOGLOBIN 9.6 g/dL (12-16); IMMATURE GRANULOCYTES 2.2 % (0-5); MCH 29.6 pg (26.0-34.0); MCV 92.6 fL (80.0-100.0); MEAN PLATELET VOLUME 9.8 fL (7.4-10.4); MONOCYTES 10.2 % (2-11); NEUTROPHILS 75.7 % (40-80); PLATELET COUNT 192 10x3/uL (130-400); RDW 16.2 % (11.5-14.5); WBC 9.3 10x3/uL (4.8-10.8)
[2018-10-10 06:25] LABS: RBC 3.24 10x6/uL (4.00-5.40)
[2018-10-10 06:37] LABS: CALCIUM 8.2 mg/dL (8.5-10.1); CARBON DIOXIDE 28.9 mmol/L (21.0-32.0); CREATININE - SERUM 4.9 mg/dL (0.6-1.3); POTASSIUM - SERUM 3.9 mmol/L (3.5-5.1)
[2018-10-10 08:15] VITALS: BP 136/63
[2018-10-10 11:34] VITALS: BP 133/58
[2018-10-10 16:08] VITALS: BP 119/69
[2018-10-10 19:55] VITALS: BP 111/46
[2018-10-10 23:55] VITALS: BP 123/51
[2018-10-11 04:00] VITALS: BP 121/59
[2018-10-11 05:39] LABS: BASOPHILS 0.4 % (0-2); EOSINOPHILS 2.9 % (0-7); IMMATURE GRANULOCYTES 1.8 % (0-5); LYMPHOCYTES 10.3 % (15-50); MCH 29.8 pg (26.0-34.0); MCHC 32.1 g/dL (31.0-37.0); MCV 92.7 fL (80.0-100.0); MEAN PLATELET VOLUME 9.9 fL (7.4-10.4); MONOCYTES 11.7 % (2-11); NEUTROPHILS 72.9 % (40-80); PLATELET COUNT 194 10x3/uL (130-400); RBC 3.02 10x6/uL (4.00-5.40); RDW 15.8 % (11.5-14.5); WBC 8.2 10x3/uL (4.8-10.8)
[2018-10-11 06:09] LABS: ANION GAP 12.6 mmol/L (8-16); CALCIUM 7.8 mg/dL (8.5-10.1); CARBON DIOXIDE 29.6 mmol/L (21.0-32.0); CREATININE - SERUM 5.9 mg/dL (0.6-1.3); POTASSIUM - SERUM 4.2 mmol/L (3.5-5.1)
[2018-10-11 08:26] VITALS: BP 126/71
[2018-10-11 12:42] VITALS: BP 136/77
[2018-10-11 20:57] VITALS: BP 92/44
[2018-10-12 00:29] VITALS: BP 123/53
[2018-10-12 04:57] VITALS: BP 118/50
[2018-10-12 05:03] LABS: BASOPHILS 0.5 % (0-2); EOSINOPHILS 4.7 % (0-7); HEMATOCRIT 26.5 % (36.0-48.0); HEMOGLOBIN 8.4 g/dL (12-16); MCH 29.7 pg (26.0-34.0); MCHC 31.7 g/dL (31.0-37.0); MCV 93.6 fL (80.0-100.0); MEAN PLATELET VOLUME 9.9 fL (7.4-10.4); MONOCYTES 11.9 % (2-11); NEUTROPHILS 73.9 % (40-80); PLATELET COUNT 198 10x3/uL (130-400); RBC 2.83 10x6/uL (4.00-5.40); RDW 15.6 % (11.5-14.5); WBC 8.1 10x3/uL (4.8-10.8)
[2018-10-12 05:16] LABS: CALCIUM 7.8 mg/dL (8.5-10.1); CREATININE - SERUM 4.8 mg/dL (0.6-1.3)
[2018-10-12 07:56] VITALS: BP 106/59
[2018-10-12 12:42] VITALS: BP 133/49
[2018-10-12 16:25] VITALS: BP 110/48
[2018-10-12 21:15] VITALS: BP 97/44
[2018-10-13] VITALS: BP 98/46
[2018-10-13 05:17] VITALS: BP 111/48
[2018-10-13 05:48] LABS: BASOPHILS 0.3 % (0-2); EOSINOPHILS 1.9 % (0-7); HEMATOCRIT 26.6 % (36.0-48.0); HEMOGLOBIN 8.5 g/dL (12-16); LYMPHOCYTES 7.3 % (15-50); MCH 29.8 pg (26.0-34.0); MCV 93.3 fL (80.0-100.0); MEAN PLATELET VOLUME 10.5 fL (7.4-10.4); MONOCYTES 10.2 % (2-11); NEUTROPHILS 78.3 % (40-80); PLATELET COUNT 202 10x3/uL (130-400); RBC 2.85 10x6/uL (4.00-5.40); RDW 15.5 % (11.5-14.5)
[2018-10-13 06:02] LABS: WBC 11.8 10x3/uL (4.8-10.8)
[2018-10-13 06:10] LABS: ANION GAP 15.6 mmol/L (8-16); CALCIUM 8.2 mg/dL (8.5-10.1); CARBON DIOXIDE 27.6 mmol/L (21.0-32.0); POTASSIUM - SERUM 4.2 mmol/L (3.5-5.1)
[2018-10-13 06:11] LABS: CREATININE - SERUM 6.4 mg/dL (0.6-1.3)
[2018-10-13 07:52] LABS: INR 1.2 (0.85-1.17); PROTIME 14.7 SECONDS (11.6-15.0)
[2018-10-13 07:53] LABS: APTT 45.5 SECONDS (22.8-39.4)
[2018-10-13 08:11] VITALS: BP 116/47
[2018-10-13 15:37] VITALS: BP 109/44
[2018-10-13 20:00] VITALS: BP 116/55
[2018-10-13 21:24] VITALS: BP 169/80
[2018-10-14] VITALS: BP 101/51
[2018-10-14 04:00] VITALS: BP 100/56
[2018-10-14 06:20] LABS: BASOPHILS 0.3 % (0-2); EOSINOPHILS 3.1 % (0-7); HEMOGLOBIN 8.1 g/dL (12-16); IMMATURE GRANULOCYTES 1.9 % (0-5); LYMPHOCYTES 6.8 % (15-50); MCH 29.5 pg (26.0-34.0); MCHC 31.2 g/dL (31.0-37.0); MCV 94.5 fL (80.0-100.0); MEAN PLATELET VOLUME 10.1 fL (7.4-10.4); MONOCYTES 9.2 % (2-11); NEUTROPHILS 78.7 % (40-80); PLATELET COUNT 212 10x3/uL (130-400); RBC 2.75 10x6/uL (4.00-5.40); RDW 15.6 % (11.5-14.5); WBC 9.4 10x3/uL (4.8-10.8)
[2018-10-14 06:42] LABS: ANION GAP 14.2 mmol/L (8-16); CALCIUM 8.1 mg/dL (8.5-10.1); CARBON DIOXIDE 28.1 mmol/L (21.0-32.0); CREATININE - SERUM 5.3 mg/dL (0.6-1.3); POTASSIUM - SERUM 4.3 mmol/L (3.5-5.1)
[2018-10-14 08:07] VITALS: BP 130/99
[2018-10-14 11:44] VITALS: BP 82/47
[2018-10-14 14:57] VITALS: BP 93/54
[2018-10-14 20:00] VITALS: BP 131/50
[2018-10-15 04:00] VITALS: BP 101/56
[2018-10-15 05:09] LABS: BASOPHILS 0.4 % (0-2); EOSINOPHILS 4.6 % (0-7); HEMATOCRIT 26.6 % (36.0-48.0); HEMOGLOBIN 8.3 g/dL (12-16); IMMATURE GRANULOCYTES 2.7 % (0-5); LYMPHOCYTES 7.7 % (15-50); MCH 29.4 pg (26.0-34.0); MCHC 31.2 g/dL (31.0-37.0); MCV 94.3 fL (80.0-100.0); MEAN PLATELET VOLUME 10.1 fL (7.4-10.4); MONOCYTES 10.8 % (2-11); NEUTROPHILS 73.8 % (40-80); PLATELET COUNT 239 10x3/uL (130-400); RBC 2.82 10x6/uL (4.00-5.40); RDW 15.4 % (11.5-14.5)
[2018-10-15 05:34] LABS: ANION GAP 18.2 mmol/L (8-16); CALCIUM 8.4 mg/dL (8.5-10.1); CARBON DIOXIDE 26.2 mmol/L (21.0-32.0); POTASSIUM - SERUM 4.4 mmol/L (3.5-5.1)
[2018-10-15 05:35] LABS: CREATININE - SERUM 6.8 mg/dL (0.6-1.3)
[2018-10-15 08:00] VITALS: BP 105/59
[2018-10-15 17:55] VITALS: BP 100/50
[2018-10-15 18:04] VITALS: BP 86/48
[2018-10-15 23:55] VITALS: BP 116/56
[2018-10-16 03:45] VITALS: BP 130/50
[2018-10-16 06:40] LABS: BASOPHILS 0.9 % (0-2); EOSINOPHILS 2.2 % (0-7); HEMATOCRIT 28.7 % (36.0-48.0); HEMOGLOBIN 8.8 g/dL (12-16); IMMATURE GRANULOCYTES 4.2 % (0-5); LYMPHOCYTES 9.1 % (15-50); MCH 29.3 pg (26.0-34.0); MCHC 30.7 g/dL (31.0-37.0); MCV 95.7 fL (80.0-100.0); MEAN PLATELET VOLUME 10.4 fL (7.4-10.4); MONOCYTES 12.3 % (2-11); NEUTROPHILS 71.3 % (40-80); RDW 15.3 % (11.5-14.5); WBC 8.1 10x3/uL (4.8-10.8)
[2018-10-16 06:43] LABS: PLATELET COUNT 305 10x3/uL (130-400)
[2018-10-16 07:04] LABS: ANION GAP 13.5 mmol/L (8-16); CALCIUM 8.2 mg/dL (8.5-10.1); CARBON DIOXIDE 28.2 mmol/L (21.0-32.0)
[2018-10-16 07:05] LABS: CREATININE - SERUM 4.1 mg/dL (0.6-1.3)
[2018-10-16 07:06] LABS: POTASSIUM - SERUM 3.7 mmol/L (3.5-5.1)
[2018-10-16 08:26] VITALS: BP 145/61
[2018-10-16 11:11] VITALS: BP 102/57
[2018-10-16 15:07] VITALS: BP 100/50
[2018-10-16 17:00] VITALS: BP 100/47
[2018-10-17] VITALS (8 sets, daily range): BP systolic 65–132; BP diastolic 40–98; Ht 160 cm; Wt 62.3 kg
[2018-10-17 06:01] LABS: BASOPHILS 1.1 % (0-2); EOSINOPHILS 1.9 % (0-7); HEMATOCRIT 28.4 % (36.0-48.0); HEMOGLOBIN 8.8 g/dL (12-16); IMMATURE GRANULOCYTES 4.3 % (0-5); MCH 29.6 pg (26.0-34.0); MCV 95.6 fL (80.0-100.0); MEAN PLATELET VOLUME 10.2 fL (7.4-10.4); MONOCYTES 10.7 % (2-11); PLATELET COUNT 315 10x3/uL (130-400); RBC 2.97 10x6/uL (4.00-5.40); RDW 15.1 % (11.5-14.5); WBC 7.8 10x3/uL (4.8-10.8)
[2018-10-17 06:24] LABS: ANION GAP 15.4 mmol/L (8-16); CARBON DIOXIDE 26.4 mmol/L (21.0-32.0); POTASSIUM - SERUM 3.8 mmol/L (3.5-5.1)
[2018-10-17 06:26] LABS: CREATININE - SERUM 5.5 mg/dL (0.6-1.3)
[2018-10-17 10:07] LABS: BASOPHILS 0.7 % (0-2); EOSINOPHILS 1.9 % (0-7); HEMOGLOBIN 9.8 g/dL (12-16); IMMATURE GRANULOCYTES 6.3 % (0-5); MCH 29.8 pg (26.0-34.0); MCHC 30.6 g/dL (31.0-37.0); MCV 97.3 fL (80.0-100.0); MEAN PLATELET VOLUME 10.2 fL (7.4-10.4); MONOCYTES 7.5 % (2-11); NEUTROPHILS 68.6 % (40-80); RBC 3.29 10x6/uL (4.00-5.40); RDW 15.1 % (11.5-14.5)
[2018-10-17 10:08] LABS: PLATELET COUNT 416 10x3/uL (130-400); WBC 13.4 10x3/uL (4.8-10.8)
[2018-10-17 10:12] LABS: INR 1.23 (0.85-1.17); PROTIME 14.9 SECONDS (11.6-15.0)
[2018-10-17 10:13] LABS: APTT 33.6 SECONDS (22.8-39.4)
[2018-10-17 10:18] LABS: ANION GAP 16.4 mmol/L (8-16); BILIRUBIN - TOTAL 0.5 mg/dL (0.2-1.3); CALCIUM 8.3 mg/dL (8.5-10.1); CARBON DIOXIDE 28.5 mmol/L (21.0-32.0); POTASSIUM - SERUM 3.9 mmol/L (3.5-5.1); PROTEIN - SERUM 6.7 g/dL (6.4-8.2)
[2018-10-18] VITALS: BP 112/66
[2018-10-18 05:51] VITALS: BP 107/61
[2018-10-18 06:05] LABS: BASOPHILS 0.9 % (0-2); EOSINOPHILS 1.5 % (0-7); HEMATOCRIT 27.5 % (36.0-48.0); HEMOGLOBIN 8.4 g/dL (12-16); IMMATURE GRANULOCYTES 3.6 % (0-5); LYMPHOCYTES 9.3 % (15-50); MCH 29.4 pg (26.0-34.0); MCHC 30.5 g/dL (31.0-37.0); MCV 96.2 fL (80.0-100.0); MEAN PLATELET VOLUME 10.2 fL (7.4-10.4); MONOCYTES 7.3 % (2-11); NEUTROPHILS 77.4 % (40-80); PLATELET COUNT 398 10x3/uL (130-400); RBC 2.86 10x6/uL (4.00-5.40); RDW 15.3 % (11.5-14.5)
[2018-10-18 06:14] LABS: ANION GAP 14.6 mmol/L (8-16); CARBON DIOXIDE 28.5 mmol/L (21.0-32.0); POTASSIUM - SERUM 4.1 mmol/L (3.5-5.1)
[2018-10-18 06:23] LABS: WBC 8.9 10x3/uL (4.8-10.8)
[2018-10-18 08:58] VITALS: BP 118/67
[2018-10-18 11:39] VITALS: BP 92/54
[2018-10-18 15:33] VITALS: BP 95/54
[2018-10-18 20:00] VITALS: BP 115/55
[2018-10-19] VITALS: BP 128/62
[2018-10-19 08:13] VITALS: BP 99/55
[2018-10-19 11:57] VITALS: BP 96/47
== END 2018-10-19 15:20 | disposition home health service (06) | DRG 252 ==
LOC: D.M2 15:57 → D.ICU 10-17 10:16 → D.M2 10-17 15:03
PROVIDERS: Internal Medicine; Internal Medicine Nephrology; Specialist; Surgery
PROC: B544ZZA Ultrasonography of Left Jugular Veins, Guidance (ICD-10-PCS; 2018-10-06)
PROC: 0W9930Z Drainage of Right Pleural Cavity with Drainage Device, Percutaneous Approach (ICD-10-PCS; 2018-10-06)
PROC: 5A1D70Z Performance of Urinary Filtration, Intermittent, Less than 6 Hours Per Day (ICD-10-PCS; 2018-10-06)
PROC: 03LY0ZZ Occlusion of Upper Artery, Open Approach (ICD-10-PCS; principal; 2018-10-06 15:00)
PROC: 05HN33Z Insertion of Infusion Device into Left Internal Jugular Vein, Percutaneous Approach (ICD-10-PCS; 2018-10-06 15:00)
PROC: 05HN33Z Insertion of Infusion Device into Left Internal Jugular Vein, Percutaneous Approach (ICD-10-PCS; 2018-10-13)
PROC: B5141ZA Fluoroscopy of Left Jugular Veins using Low Osmolar Contrast, Guidance (ICD-10-PCS; 2018-10-13)
DX: T82.898A Other specified complication of vascular prosthetic devices, implants and grafts, initial encounter (principal); N18.6 End stage renal disease; J69.0 Pneumonitis due to inhalation of food and vomit; J96.22 Acute and chronic respiratory failure with hypercapnia; J96.21 Acute and chronic respiratory failure with hypoxia; E11.52 Type 2 diabetes mellitus with diabetic peripheral angiopathy with gangrene; I96 Gangrene, not elsewhere classified; I13.2 Hypertensive heart and chronic kidney disease with heart failure and with stage 5 chronic kidney disease, or end stage renal disease; E87.1 Hypo-osmolality and hyponatremia; J93.9 Pneumothorax, unspecified; J98.11 Atelectasis; T17.590A Other foreign object in bronchus causing asphyxiation, initial encounter; Y83.8 Other surgical procedures as the cause of abnormal reaction of the patient, or of later complication, without mention of misadventure at the time of the procedure; E11.22 Type 2 diabetes mellitus with diabetic chronic kidney disease; Z99.2 Dependence on renal dialysis; E78.5 Hyperlipidemia, unspecified; K21.9 Gastro-esophageal reflux disease without esophagitis; F03.90 Unspecified dementia, unspecified severity, without behavioral disturbance, psychotic disturbance, mood disturbance, and anxiety; K59.09 Other constipation; E03.9 Hypothyroidism, unspecified; D63.1 Anemia in chronic kidney disease; I50.9 Heart failure, unspecified; I25.10 Atherosclerotic heart disease of native coronary artery without angina pectoris; Z86.73 Personal history of transient ischemic attack (TIA), and cerebral infarction without residual deficits